=== PATIENT | female | born 1985 | race Caucasian/White ===

== ENCOUNTER 2019-05-04 01:06 | Inpatient (IN) ==
[2019-05-04] MEDS ORDERED: ONDANSETRON INJ 2 MG/ML 2 ML VIAL IV STA (01:47)
[2019-05-04] MEDS ORDERED: MECLIZINE HCL 25 MG TAB PO STA (01:47)
[2019-05-04] MEDS ORDERED: LORazepam 1 MG/2 ML VIAL IV STA (01:47)
[2019-05-04] MEDS ORDERED: SODIUM CHLORIDE 0.9% 1000ML 1,000 ML IV SCH (02:00)
[2019-05-04 02:23] LABS: Basophils # (auto) 0.04 K/uL (0-0.2); Basophils % (auto) 0.3 %; Eosinophils # (auto) 0.09 K/uL (0-0.5); Eosinophils % (auto) 0.7 %; Hematocrit (blood only) 39.7 % (37-47); Hemoglobin 13.9 g/dL (12.0-16.0); Immature Granulocytes # (auto) 0.02 K/uL (0.00-0.02); Immature Granulocytes % (auto) 0.2 %; Lymphocytes # (auto) 1.73 K/uL (1.2-3.4); Lymphocytes % (auto) 13.4 %; Mean Corpuscular Hemoglobin 31.6 pg (25-34); Mean Corpuscular Volume 90.2 fL (80-100); Mean Platelet Volume 10.6 fL (7.4-10.4); Monocytes # (auto) 0.99 K/uL (0.11-0.59); Monocytes % (auto) 7.7 %; Neutrophils # (auto) 10.01 K/uL (1.4-6.5); Neutrophils % (auto) 77.7 %; Platelet Count 226 K/uL (130-400); RDW Coefficient of Variation 12.5 % (11.5-14.5); RDW Standard Deviation 41.2 fL (36.4-46.3); White Blood Count 12.88 K/uL (4.8-10.8)
[2019-05-04 02:40] LABS: Alanine Aminotransferase 18 U/L (12-78); Albumin Level 3.5 gm/dl (3.4-5.0); Aspartate Aminotransferase 15 U/L (15-37); BUN Creatinine Ratio 15.9 (10-20); Blood Urea Nitrogen 14 mg/dl (7-18); Calcium 8.8 mg/dl (8.5-10.1); Carbon Dioxide 24 mmol/L (21-32); Chloride 106 mmol/L (98-107); Creatinine Clr Calc Pharmacy 101.3 ml/min; Est GFR (African American) 102.9; Est GFR (Non-African American) 88.8; Glucose 104 mg/dl (70-99); Magnesium 2.1 mg/dl (1.8-2.4); Potassium 4.3 mmol/L (3.5-5.1); Sodium 141 mmol/L (136-145)
[2019-05-04 02:51] LABS: Albumin Globulin Ratio 0.8 (0.9-2); Alkaline Phosphatase 93 U/L (45-117); Bilirubin,Total 0.3 mg/dl (0.2-1); Globulin 4.2 gm/dl (2.5-4.0); Total Protein 7.7 gm/dl (6.4-8.2); Troponin I < 0.015 ng/ml (0-0.045)
[2019-05-04 03:35] LABS: Appearance Urine Clear (Clear); Bacteria Urine Automated Negative (Negative); Bilirubin Urine Negative (Negative); Blood Urine 2+ (Negative); Color Urine Yellow; Epithelial Cell Urine Auto >30 /lpf (0-5); Glucose Urine UA Negative (Negative); Ketones Urine Trace (Negative); Leukocyte Esterase Urine Negative (Negative); Nitrite Urine Negative (Negative); Protein Urine Negative (Negative); RBC Urine Automated 0-4 /hpf (0-4); Specific Gravity Urine 1.023 (1.000-1.030); Urobilinogen Urine Negative (Negative); pH Urine 7.5 (4.5-7.5)
[2019-05-04 03:46] LABS: Mucus Urine Present (None Prsent)
[2019-05-04 03:47] LABS: Cast Urine Automated 0 /lpf (0-5)
--- NOTE | 2019-05-04 07:02 | CT Scan Report ---
CT SCAN OF THE BRAIN WITHOUT IV CONTRAST CLINICAL HISTORY: Vertigo. COMPARISON STUDY: No priors. TECHNIQUE: Unenhanced axial CT scan of the brain is performed from the vertex to the skull base. A d ose lowering technique was utilized adhering to the principles of ALARA. CT DOSE: 537.48 mGy.cm FINDINGS: Brain parenchyma: The brain parenchyma is normal in appearance. There is no hemorrhage, mass effect, or evidence of acute territorial ischemia by CT criteria. Pastor-white matter differentiation is preser maria del carmen. No extra-axial fluid collection is seen. Ventricles, sulci, cisterns: Normal in configuration. Intracranial vasculature: The visualized intracranial vasculature at the skull base is normal in appe arance. Calvarium: Unremarkable. Sinuses and mastoids: The visualized paranasal sinuses are clear. The mastoid air cells are well pneu matized. Orbits: The bony orbits are grossly intact. IMPRESSION: No acute intracranial abnormality. Electronically signed by: Nayan Pérez M.D. 05/04/2019 7:00 AM
--- NOTE | 2019-05-04 07:19 | Emergency Department Note ---
History of Present Illness General Chief complaint: Nausea Stated complaint: NAUSEA/VOMITING Time Seen by Provider: 05/04/19 01:28 History of Present Illness Maximum Pain Intensity: 4 This is a 33-year-old female presenting to the emergency department for evaluation of dizziness, nausea, and vomiting. The patient symptoms began 2 to 3 hours ago while she was at home. The patient was laying on her side after eating dinner on the couch, sat up, and immediately had the sensation that the room was spinning. The patient had multiple episodes of vomiting and was not able to get the dizziness under control. The patient had difficulty walking and keeping her balance. She does not report recent fevers or chills, but does report some URI symptoms last month. The patient does not believe she is . She is not having a numbness or paresthesias. She rates her current discomfort a 4/10. She does report one past episode of vertigo that resolved very quickly after taking meclizine. The patient did try Dramamine tonight, but she had vomited immediately after this. The patient denies chance of and considers herself usually healthy. She does not have chest or abdominal pains. Home Medications Home Medications Medication Instructions Recorded Confirmed Type Active Charcoal 1 dose PO DIRECTED PRN 05/04/19 05/04/19 History dimenhydrinate [Dramamine] 50 mg PO DIRECTED PRN 05/04/19 05/04/19 History diphenhydramine HCl [Benadryl] 25 mg PO DIRECTED PRN 05/04/19 05/04/19 Histor y etonogestrel-ethinyl estradiol 1 vag ring VAGINAL DIRECTED 05/04/19 05/04/19 History [NuvaRing] ibuprofen 200 - 600 mg PO DIRECTED PRN 05/04/19 05/04/19 History naproxen sodium [Aleve] 220 - 440 mg PO DIRECTED PRN 05/04/19 05/04/19 History Allergies Allergy/AdvReac Type Severity Reaction Status Date / Time nickel Allergy Mild Rash Verified 05/04/19 01:37 JEWELRY METALS Allergy Mild Rash Uncoded 05/04/19 01:37 Past Med/Surg History Medical History No chronic diseases present No significant past surgical history Social History Feels Safe at Home: Yes Smoking Status: Never smoker Review of Systems A total of 10 systems reviewed and were otherwise negative Physical Exam Vital Signs Vital Signs - 24 hr 05/04/19 01:11 05/04/19 01:20 05/04/19 01:30 Temperature 36.6 C Temperature Source Oral Sepsis Action Taken by Nursing No Action Required Pulse Rate 82 81 72 Pulse Rate from SpO2 Sensor 83 74 Respiratory Rate 15 16 12 Respiratory Effort / Characteristics Non-Labored Respiratory Depth Normal Blood Pressure 135/79 135/79 136/92 Blood Pressure Mean 97 97 106 Pulse Oximetry 100 100 100 Oxygen Delivery Method Room Air 05/04/19 02:00 05/04/19 02:01 05/04/19 02:34 Temperature Temperature Source Sepsis Action Taken by Nursing Pulse Rate 85 87 71 Pulse Rate from SpO2 Sensor 85 72 Respiratory Rate 18 18 17 Respiratory Effort / Characteristics Respiratory Depth Blood Pressure 130/84 123/81 Blood Pressure Mean 99 95 Pulse Oximetry 100 100 100 Oxygen Delivery Method Room Air 05/04/19 03:30 05/04/19 04:00 05/04/19 04:30 Temperature Temperature Source Sepsis Action Taken by Nursing Pulse Rate 86 77 83 Pulse Rate from SpO2 Sensor 81 77 83 Respiratory Rate 16 20 15 Respiratory Effort / Characteristics Respiratory Depth Blood Pressure 156/71 H 113/71 125/71 Blood Pressure Mean 99 85 89 Pulse Oximetry 99 99 96 Oxygen Delivery Method 05/04/19 05:00 05/04/19 05:46 05/04/19 06:00 Temperature Temperature Source Sepsis Action Taken by Nursing Pulse Rate 82 78 82 Pulse Rate from SpO2 Sensor 83 78 82 Respiratory Rate 17 14 17 Respiratory Effort / Characteristics Respiratory Depth Blood Pressure 141/76 H 126/79 125/76 Blood Pressure Mean 97 94 92 Pulse Oximetry 95 94 99 Oxygen Delivery Method 05/04/19 06:30 Temperature Temperature Source Sepsis Action Taken by Nursing Pulse Rate 86 Pulse Rate from SpO2 Sensor 87 Respiratory Rate 19 Respiratory Effort / Characteristics Respiratory Depth Blood Pressure 135/79 Blood Pressure Mean 97 Pulse Oximetry 98 Oxygen Delivery Method VITALS: Vitals are noted on the nurse's note and reviewed by myself. Vital signs stable. GENERAL: Well-developed, well-nourished, white female, who is pale and is dry heaving. HEAD: Normocephalic atraumatic. EARS: External ear normal. External auditory canals clear, tympanic membranes pearly pastor without erythema or effusion bilaterally. EYES: Pupils equal round and reactive to light and accommodation. Conjunctivae without injection, sclerae without icterus. Extraocular movements intact. NOSE: Patent, turbinates without inflammation or discharge. MOUTH: Mucous membranes moist. Tonsils are not enlarged. Pharynx without erythema, blood, or exudate. Uvula midline. Airway patent. NECK: Supple without nuchal rigidity. No lymphadenopathy. No thyromegaly. Cervical spine is nontender. HEART: Regular rate and rhythm without murmurs gallops or rubs. LUNGS: Clear to auscultation bilaterally without wheezes, rales or rhonchi. No retractions or accessory muscle use. ABDOMEN: Positive normal bowel sounds x 4. Soft, nontender, without masses or organomegaly. No guarding or rebound tenderness. MUSCULOSKELETAL: No muscle atrophy, erythema, or edema noted. Full range of motion in all extremities. NEURO: Patient was alert and oriented to person place and time. Movement of the head causes significant dizziness and reported worsening of symptoms for the patient. Course Administered Medications Discontinued Medications Lorazepam (Ativan) 1 mg in 2 mls @ 2 mls/min IV NOW STA Stop: 05/04/19 01:48 Last Admin: 05/04/19 02:26 Dose: 2 mls/min Documented by: [id number] Sodium Chloride (Nss 1000ml) 1,000 mls @ 999 mls/hr IV .Q1H1M AG Stop: 05/04/19 03:00 Last Infusion: 05/04/19 03:55 Dose: 0 mls/hr Documented by: [id number] Admin: 05/04/19 02:26 Dose: 999 mls/hr Documented by: [id number] Meclizine HCl (Antivert) 25 mg PO NOW STA Stop: 05/04/19 01:48 Last Admin: 05/04/19 02:00 Dose: 25 mg Documented by: [id number] Ondansetron HCl (Zofran) 4 mg IV NOW STA Stop: 05/04/19 01:48 Last Admin: 05/04/19 02:26 Dose: 4 mg Documented by: [id number] Medical Decision Making Differential Diagnosis Differential diagnosis: Etiologies such as benign positional vertigo, labrynthitis, dehydration, hypovolemia, anemia, tumor, infection, hypoglycemia, electrolyte abnormalities, cardiac sources, toxicological sources, central neurologic process, as well as others were entertained. Laboratory Data Result diagrams: 05/04/19 02:12 05/04/19 02:12 Lab Results 05/04/19 05/04/19 05/04/19 Range/Units 02:12 02:12 03:23 WBC 12.88 H (4.8-10.8) K/uL RBC 4.40 (4.2-5.4) M/uL Hgb 13.9 (12.0-16.0) g/dL Hct 39.7 (37-47) % MCV 90.2 (80-100) fL MCH 31.6 (25-34) pg MCHC 35.0 (32-36) g/dL RDW Std Deviation 41.2 (36.4-46.3) fL RDW Coeff of Siddharth 12.5 (11.5-14.5) % Plt Count 226 (130-400) K/uL MPV 10.6 H (7.4-10.4) fL Immature Gran % (Auto) 0.2 % Neut % (Auto) 77.7 % Lymph % (Auto) 13.4 % Oxford % (Auto) 7.7 % Eos % (Auto) 0.7 % Baso % (Auto) 0.3 % Immature Gran # (Auto) 0.02 (0.00-0.02) K/uL Neut # (Auto) 10.01 H (1.4-6.5) K/uL Lymph # (Auto) 1.73 (1.2-3.4) K/uL Oxford # (Auto) 0.99 H (0.11-0.59) K/uL Eos # (Auto) 0.09 (0-0.5) K/uL Baso # (Auto) 0.04 (0-0.2) K/uL Sodium 141 (136-145) mmol/L Potassium 4.3 (3.5-5.1) mmol/L Chloride 106 (98-107) mmol/L Carbon Dioxide 24 (21-32) mmol/L Anion Gap 11.0 (3-11) BUN 14 (7-18) mg/dl Creatinine 0.87 (0.6-1.2) mg/dl Est Cr Clr Drug Dosing 101.3 ml/min Est GFR ( Amer) 102.9 Est GFR (Non-Af Amer) 88.8 BUN/Creatinine Ratio 15.9 (10-20) Glucose 104 H (70-99) mg/dl Calcium 8.8 (8.5-10.1) mg/dl Magnesium 2.1 (1.8-2.4) mg/dl Total Bilirubin 0.3 (0.2-1) mg/dl AST 15 (15-37) U/L ALT 18 (12-78) U/L Alkaline Phosphatase 93 (45-117) U/L Troponin I < 0.015 (0-0.045) ng/ml Total Protein 7.7 (6.4-8.2) gm/dl Albumin 3.5 (3.4-5.0) gm/dl Globulin 4.2 H (2.5-4.0) gm/dl Albumin/Globulin Ratio 0.8 L (0.9-2) TSH 2.190 (0.300-4.500) uIu/ml Urine Color Yellow Urine Appearance Clear (Clear) Urine pH 7.5 (4.5-7.5) Ur Specific Jeffers 1.023 (1.000-1.030) Urine Protein Negative (Negative) Urine Glucose (UA) Negative (Negative) Urine Ketones Trace H (Negative) Urine Blood 2+ H (Negative) Urine Nitrite Negative (Negative) Urine Bilirubin Negative (Negative) Urine Urobilinogen Negative (Negative) Ur Leukocyte Esterase Negative (Negative) Urine WBC (Auto) 1-5 (0-5) /hpf Urine RBC (Auto) 0-4 (0-4) /hpf U Hyaline Cast (Auto) 0 (0-5) /lpf U Epithel Cells (Auto) >30 H (0-5) /lpf Urine Bacteria (Auto) Negative (Negative) Ur Renal Epithelial Cell Not Reportable Urine Mucus Present A (None Prsent) Urine Yeast Present A (None Prsent) Imaging Data Radiologist's Impression: CT SCAN OF THE BRAIN WITHOUT IV CONTRAST CLINICAL HISTORY: Vertigo. COMPARISON STUDY: No priors. TECHNIQUE: Unenhanced axial CT scan of the brain is performed from the vertex to the skull base. A dose lowering technique was utilized adhering to the principles of ALARA. CT DOSE: 537.48 mGy.cm FINDINGS: Brain parenchyma: The brain parenchyma is normal in appearance. There is no hemorrhage, mass effect, or evidence of acute territorial ischemia by CT criteria. Pastor-white matter differentiation is preserved. No extra-axial fluid collection is seen. Ventricles, sulci, cisterns: Normal in configuration. Intracranial vasculature: The visualized intracranial vasculature at the skull base is normal in appearance. Calvarium: Unremarkable. Sinuses and mastoids: The visualized paranasal sinuses are clear. The mastoid a ir cells are well pneumatized. Orbits: The bony orbits are grossly intact. IMPRESSION: No acute intracranial abnormality. ECG Data Additional Comments: Normal sinus rhythm @88bpm Normal ECG No previous ECGs available MDM Narrative Physical exam and history were performed. Nursing notes, EMR, and Medication List were personally reviewed. Patient appears to have dizziness, nausea, and vomiting. Movement exacerbates the patient's discomfort, which she does describe as the room spinning. IV access was established and labs were obtained. EKG was performed as above. She was placed on the hall monitor and provided IV Zofran, IV Ativan, and oral meclizine. She was hydrated with normal saline. The patient's blood work is as above and was reviewed. She does have a minimally elevated white blood cell count of 12,000. She does not have a significant anemia, bandemia, or gross electrolyte imbalance. Transaminases are not diagnostic. Troponin x1 is negative. Urine is without evidence of infection. She remained in normal sinus rhythm while on the hall monitor. Patient CT scan of the head does not show any acute findings per my and radiology's interpretation. The patient was able to rest very comfortably was of several hours here in the ER. She was reevaluated multiple times throughout the course of her stay. I did have a lengthy conversation with the patient regarding options of care, and we did attempt to have her ambulate. The patient was very unsteady with her gait and continued to have spinning of the room. She was able to to the b athroom and try to brush her teeth, however she immediately had vomiting again. The patient was put back into bed safely by nursing, and overall the patient does not feel comfortable for discharge home. The case was discussed with the on-call hospitalist, who agreed to evaluate the patient for further care and management. Please see their dictation for further patient course, plan, and position. The chart was completed utilizing [employer] Voice Recognition Software. Grammatical errors, random word insertions, pronoun errors, and incomplete sentences are an occasional consequence of this system due to software limitations, ambient noise, and hardware issues. Any formal questions or concerns about the content, text, or information contained within the body of this dictation should be directly addressed to the provider for clarification. . Impression & Plan Vertigo, Nausea Discharge Plan Visit Data Chief Complaint: Nausea Stated Complaint: NAUSEA/VOMITING Other Complaint: Vomiting ED Provider: Kalee Cannon ED Midlevel Provider: Narciso Yeager Discharge Problem: Vertigo, Nausea Forms Stand Alone Forms: [employer] Prescriptions Prescriptions: No Action Active Charcoal 1 dose PO DIRECTED PRN (Reason: IBS FLARE UPS) RF: 0 dimenhydrinate [Dramamine] 50 mg Tablet 50 mg PO DIRECTED PRN (Reason: Nausea) RF: 0 diphenhydramine HCl [Benadryl] 25 mg Capsule 25 mg PO DIRECTED PRN (Reason: NEEDED) RF: 0 naproxen sodium [Aleve] 220 mg Tablet 220 - 440 mg PO DIRECTED PRN (Reason: Pain) RF: 0 ibuprofen 200 mg Tablet 200 - 600 mg PO DIRECTED PRN (Reason: Pain) RF: 0 NuvaRing 0.12-0.015 mg/24 hr Ring 1 vag ring VAGINAL DIRECTED RF: 0 Referrals Referrals: [place] [Primary Care Provider] -
--- NOTE | 2019-05-04 08:27 | History & Physical Report ---
Date of Service May 04, 2019 Assessment & Plan (1) Vertigo: (2) Nausea: - Admit to [facility] - Continue NSS at 125 mL/h, meclizine 25 mg q6h, and Ativan 0.5 mg IV q6h prn - Does not sound like food poisoning although the patient did consume raw fish yesterday at lunch, also had typical bar food including wings and nachos along with beer later in the evening. - Nursing to walk with patient until gait stability returns - CT of the head is negative - WBC equals 12.88, this is possibly an inflammatory reaction with recent vomiting, other labs are essentially within normal limits - Allow regular diet, discussed with patient at bedside to eat a light lunch if she feels so inclined, something like soup or cream of wheat, advance as tolerated (3) IBS (irritable bowel syndrome): -History of such, patient had one episode of diarrhea while in the ER, continue to monitor DVT prophylaxis: Start Lovenox tomorrow morning if patient is unable to walk, for now may use teds Disposition: Patient from home, likely to remain in the hospital x1 to 2 days for IV hydration, IV medications History of Present Illness Primary Care Provider: [facility] This is a 33-year-old female with PMHx of IBS, who presents with acute onset of vertigo which began last night at 9:30 PM. She is a grad student at [employer]. Patient notes that she had a pokey bowl which consists of rice and raw fish for lunch, but felt well afterwards. She was out with friends yesterday for dinner and consumed 1 wing and nachos along with 3 beers between 4 PM and 9 PM. She reports that once getting home she was on the couch for a while relaxing, then stood up and was unable to walk without becoming significantly dizzy, swaying from side to side, and then abruptly became nauseous and vomited. She notes that overnight she had multiple episodes of vomiting with any head movement from side to side or while attempting to stand. She admits to having one episode of vertigo in the past which occurred last fall, but it was thought to be due to seasonal allergies and dehydration it was placed on oral antihistamines. Her symptoms resolved very quickly at that time. She attempted to get up in the ER pressure teeth and be able to be discharged home after receiving meclizine, Ativan and a liter of fluid however had recurrence of her symptoms and proceeded to vomit. She also notes that she had an episode of diarrhea but feels this is secondary to IBS. Labs are within normal limits other than a slightly elevated WBC, equals 12.88, CT of the head is negative for any acute abnormalities. Allergies Allergy/AdvReac Type Severity Reaction Status Date / Time nickel Allergy Mild Rash Verified 05/04/19 01:37 JEWELRY METALS Allergy Mild Rash Uncoded 05/04/19 01:37 Home Medications Home Medications Medication Instructions Recorded Confirmed Type Active Charcoal 1 dose PO DIRECTED PRN 05/04/19 05/04/19 History NuvaRing 1 vag ring VAGINAL DIRECTED 05/04/19 05/04/19 History dimenhydrinate [Dramamine] 50 mg PO DIRECTED PRN 05/04/19 05/04/19 History diphenhydramine HCl [Benadryl] 25 mg PO DIRECTED PRN 05/04/19 05/04/19 History ibuprofen 200 - 600 mg PO DIRECTED PRN 05/04/19 05/04/19 History naproxen sodium [Aleve] 220 - 440 mg PO DIRECTED PRN 05/04/19 05/04/19 History meclizine 25 mg PO Q6H PRN #30 tab 05/05/19 Rx prednisone 60 mg PO DAILY #18 tab 05/05/19 Rx Past Med/Surg History Medical History No chronic diseases present No significant past surgical history Social History Preferred Language: [place] Communication Ability: Effective Grade Teacher Required: No Beliefs That Will Affect Care: None Current Living Situation: Significant Other Other Information That Helps Us Care for You: No Feels Safe at Home: Yes Safety Concerns: Feels Safe At This Time Smoking Status: Never smoker Do You Dip or Chew Tobacco: No ; Second Hand Exposure: No ; Tobacco Cessation Education Requested by Patient: No Hx Alcohol Use: Yes Alcohol type: beer Hx Substance Use: No Review of Systems Review of Systems: Constitutional: No fever, sweats or chills, + dizziness, inability to walk due to vertigo Eyes: No diplopia, no worsening or blurred vision ENT: normal hearing, no trouble swallowing Respiratory: No cough, sputum, dyspnea at rest or on exertion Cardiovascular: No chest pain, tightness or palpitations Abdomen: As per HPI, + nausea and vomiting, +1 episode of diarrhea Musculoskeletal: No joint pain, calf pain, swelling Neurologic: No weakness, numbness/tingling, + balance problems Psychiatric: No anxiety or depression Skin: No rash or itch Physical Exam Physical Exam: General: awake, alert, no apparent distress, + obese with BMI of 36 Head: Normocephalic, atraumatic ENT: PERRL, EOMI, no pharyngeal exudate, mucous membranes moist Chest: Clear to auscultation, on room air, no adventitious breath sounds Cardiac: Regular rate and rhythm, no murmur, no JVD, normal peripheral pulses, good capillary refill Abdominal: NABS x 4 quadrants, soft, nontender to palpation, no rebound, g uarding or tenderness Extremities: Normal inspection, no peripheral edema or erythema, calfs nontender to palpation Psych: Normal mood and affect Neuro: AAO x 3, no gross motor deficits, speech is clear, gait was not assessed secondary to vertigo Skin: no rash or erythema Results & Data Vital Signs (Past 12 Hours) Vital Signs Temp Pulse Resp BP Pulse Ox 05/04/19 07:00 78 15 125/77 98 05/04/19 06:30 86 19 135/79 98 05/04/19 06:00 82 17 125/76 99 05/04/19 05:46 78 14 126/79 94 05/04/19 05:00 82 17 141/76 H 95 05/04/19 04:30 83 15 125/71 96 05/04/19 04:00 77 20 113/71 99 05/04/19 03:30 86 16 156/71 H 99 05/04/19 02:34 71 17 123/81 100 05/04/19 02:01 87 18 100 05/04/19 02:00 85 18 130/84 100 05/04/19 01:30 72 12 136/92 100 05/04/19 01:20 36.6 C 81 16 135/79 100 05/04/19 01:11 82 15 135/[address] SCAN OF THE BRAIN WITHOUT IV CONTRAST CLINICAL HISTORY: Vertigo. COMPARISON STUDY: No priors. TECHNIQUE: Unenhanced axial CT scan of the brain is performed from the vertex to the skull base. A dose lowering technique was utilized adhering to the principles of ALARA. CT DOSE: 537.48 mGy.cm FINDINGS: Brain parenchyma: The brain parenchyma is normal in appearance. There is no hemorrhage, mass effect, or evidence of acute territorial ischemia by CT criteria. Pastor-white matter differentiation is preserved. No extra-axial fluid collection is seen. Ventricles, sulci, cisterns: Normal in configuration. Intracranial vasculature: The visualized intracranial vasculature at the skull base is normal in appearance. Calvarium: Unremarkable. Sinuses and mastoids: The visualized paranasal sinuses are clear. The mastoid air cells are well pneumatized. Orbits: The bony orbits are grossly intact. IMPRESSION: No acute intracranial abnormality. ECG Additional Comments: 04-MAY-2019 02:01:36 [facility]-EDSTAT ROUTINE RETRIEVAL Normal sinus rhythm Normal ECG No previous ECGs available 25mm/s 10mm/mV 150Hz 9.0.9 12SL 241 PEDRO PABLO: 13 Referred by: REFERRED SELF Unconfirmed Vent. rate 88 BPM ND interval 182 ms QRS duration 66 ms QT/QTc 374/452 ms P-R-T axes 54 72 41 Code Status & VTE Plan Code Status Full code-discussed with patient at bedside Supervising Physician Co-Signing Physician Notes During my face to face encounter with the patient, I performed a physical examinationn and a clinical history. On examination, patient presented with nystagmus horizontally. She also reports that just looking towards her right or left would make her vertigo worse. She denies any loss of hearing, or tinnitus. Will admit patient. I reviewed above documentation and agree with it except for information that I added. Will order benzo's and will likely order MRI to assess for any abnormalities that could be making her vertigo worse. PG Care Time/CCT Total # of Minutes Spent Total Time Spent with Patient: Total time spent is greater than 50% in coordination of care (as documented) at patient's floor/unit and/or counseling patient:
[2019-05-04] MEDS ORDERED: ETONOGESTREL ETHINYL ESTRADIOL PV SCH (10:04)
[2019-05-04] MEDS ORDERED: ONDANSETRON INJ 2 MG/ML 2 ML VIAL IV PRN (10:04)
[2019-05-04] MEDS ORDERED: LORazepam 0.5 MG/1 ML VIAL IV PRN (10:04)
[2019-05-04] MEDS ORDERED: ACETAMINOPHEN 325 MG TAB PO PRN (10:04)
[2019-05-04] MEDS: SODIUM CHLORIDE 0.9% 1000ML 1,000 ML IV SCH ×2 (11:08→21:06)
[2019-05-04] MEDS: MECLIZINE HCL 25 MG TAB PO SCH ×3 (12:22→23:47)
[2019-05-04] MEDS ORDERED: INFLUENZA ADMINISTRATION CHARGE ONE ×2 (12:45→14:00)
[2019-05-04] MEDS ORDERED: INFLUENZA VIRUS QUAD VACCINE 0.5 ML SYR IM ONE ×2 (12:45→14:00)
--- NOTE | 2019-05-04 18:10 | Magnetic Resonance Report ---
Brain MRI WITHOUT CONTRAST HISTORY: vertigo TECHNIQUE: Multiplanar multisequence MRI of the brain was performed without the use of contrast. COMPARISON STUDY: Head CT 05/04/2019. FINDINGS: There are no areas of restricted diffusion to suggest acute infarction. The midline structu res are intact. The paranasal sinuses are clear. The mastoid air cells are clear. The ventricles and sulci are within normal limits for age. There is no mass, hematoma, midline shift. The major vascular flow-voids at the skull base are well maintained. A 9 mm focal defect within the right caudate head consistent with an old lacunar infarct. There are few scattered punctate foci of T2 hyperintensity se en within the subcortical white matter of the supratentorial brain. IMPRESSION: 1. No acute intracranial abnormality. 2. Old lacunar infarct within the right caudate head. 2. A few punctate foci of T2 hyperintensity seen within the subcortical white matter of the supratent orial brain. These are nonspecific but could be seen in the setting of migraines, early microvascular ischemic change, a demyelinating disease, or Lyme disease. Clinical correlation recommended. Electronically signed by: Stanley San M.D. 05/04/2019 6:08 PM
[2019-05-05] MEDS: MECLIZINE HCL 25 MG TAB PO SCH ×2 (05:11→12:36)
[2019-05-05] MEDS: SODIUM CHLORIDE 0.9% 1000ML 1,000 ML IV SCH ×2 (05:13→12:20)
[2019-05-05] MEDS ORDERED: predniSONE 20 MG TAB PO SCH (11:30)
--- NOTE | 2019-05-16 07:49 | Discharge Summary ---
Date of Service May 05, 2019 Admission HPI Per Admitting Provider This is a 33-year-old female with PMHx of IBS, who presents with acute onset of vertigo which began last night at 9:30 PM. She is a grad student at [employer]. Patient notes that she had a pokey bowl which consists of rice and raw fish for lunch, but felt well afterwards. She was out with friends yesterday for dinner and consumed 1 wing and nachos along with 3 beers between 4 PM and 9 PM. She reports that once getting home she was on the couch for a while relaxing, then stood up and was unable to walk without becoming significantly dizzy, swaying from side to side, and then abruptly became nauseous and vomited. She notes that overnight she had multiple episodes of vomiting with any head movement from side to side or while attempting to stand. She admits to having one episode of vertigo in the past which occurred last fall, but it was thought to be due to seasonal allergies and dehydration it was placed on oral antihistamines. Her symptoms resolved very quickly at that time. She attempted to get up in the ER pressure teeth and be able to be discharged home after receiving meclizine, Ativan and a liter of fluid however had recurrence of her symptoms and proceeded to vomit. She also notes that she had an episode of diarrhea but feels this is secondary to IBS. Labs are within normal limits other than a slightly elevated WBC, equals 12.88, CT of the head is negative for any acute abnormalities. Principal Diagnosis Vertigo Discharge Exam General: awake, alert, no apparent distr Head: Normocephalic, atraumatic ENT: PERRL, EOMI, no pharyngeal exudate, mucous membranes moist Chest: Clear to auscultation, on room air, no adventitious breath sounds Cardiac: Regular rate and rhythm, no murmur, no JVD, normal peripheral pulses, good capillary refill Abdominal: NABS x 4 quadrants, soft, nontender to palpation, no rebound, guarding or tenderness Extremities: Normal inspection, no peripheral edema or erythema, calfs nontender to palpation Psych: Normal mood and affect Neuro: AAO x 3, no gross motor deficits, speech is clear, gait was not assessed secondary to vertigo Skin: no rash or erythema Discharge Data Allergies Allergy/AdvReac Type Severity Reaction Status Date / Time nickel Allergy Mild Rash Verified 05/04/19 01:37 JEWELRY METALS Allergy Mild Rash Uncoded 05/04/19 01:37 Consultations 05/04/19 06:39 ED Decision to Admit Stat Ordered Studies 05/04/19 01:47 CT head/brain wo con Urgent 05/04/19 16:33 MR brain wo con Routine Hospital Course (1) Vertigo: (2) Nausea: - Admit to [facility] On examination, patient presented with nystagmus horizontally. She also reports that just looking towards her right or left would make her vertigo worse. She denies any loss of hearing, or tinnitus. - Continue NSS at 125 mL/h, meclizine 25 mg q6h, and Ativan 0.5 mg IV q6h prn - Does not sound like food poisoning although the patient did consume raw fish yesterday at lunch, also had typical bar food including wings and nachos along with beer later in the evening. - Nursing to walk with patient until gait stability returns - CT of the head is negative - WBC equals 12.88, this is possibly an inflammatory reaction with recent vomiting, other labs are essentially within normal limits - Allow regular diet, discussed with patient at bedside to eat a light lunch if she feels so inclined, something like soup or cream of wheat, advance as tolerated - Will order benzo's and will likely order MRI to assess for any abnormalities that could be making her vertigo worse. On day of discharge, MRI scan of head was negative. Patient likely may have vestibular neuritis. Patient improved with steroid burst and benzo. Patient will be followed by PCP and likely ENT as an outpatient. As patient improved, she will be discharged. (3) IBS (irritable bowel syndrome): -History of such, patient had one episode of diarrhea while in the ER, continue to monitor Total Time Total Time Spent Total Time Spent (In Minutes): 32 Total Time Includes: Examination of the Patient, Discharge Planning and Medication Reconciliation Discharge Plan Discharge Items Patient Disposition: Home - Self-Care Reason For Visit: VERTIGO, NAUSEA, VOMITING Discharge Diagnosis: vertigo Activity: Resume your previous activity Non-emergency contact: Primary Care Provider Call non-emergency contact if: you have any medication questions Follow-up/Referrals: [place] [Primary Care Provider] - Diet: Regular Addtl Attending Provider Instructions: Recommend to followup with PCP in 1-2 weeks Recommend f/u with ENT Pending Studies at Discharge: No Stand-Alone Forms: [facility] Medications and DC Order Prescriptions: New prednisone 20 mg Tablet 60 mg PO DAILY Qty: 18 RF: 0 meclizine 25 mg Tablet 25 mg PO Q6H PRN (Reason: vertigo) Qty: 30 RF: 0 Continued Active Charcoal 1 dose PO DIRECTED PRN (Reason: IBS FLARE UPS) RF: 0 dimenhydrinate [Dramamine] 50 mg Tablet 50 mg PO DIRECTED PRN (Reason: Nausea) RF: 0 diphenhydramine HCl [Benadryl] 25 mg Capsule 25 mg PO DIRECTED PRN (Reason: NEEDED) RF: 0 naproxen sodium [Aleve] 220 mg Tablet 220 - 440 mg PO DIRECTED PRN (Reason: Pain) RF: 0 ibuprofen 200 mg Tablet 200 - 600 mg PO DIRECTED PRN (Reason: Pain) RF: 0 NuvaRing 0.12-0.015 mg/24 hr Ring 1 vag ring VAGINAL DIRECTED RF: 0 Discharge Orders: Discharge Order (Routine); Ordered 05/05/19 Ordered By: Kne Ascencio Admission Data Admit Date/Time: 05/04/19 08:17 Attending Provider: Ken Ascencio Admit Provider: Ken Ascencio Primary Care Provider: [facility] Other Providers: Rafy Wade Other Interventions: Discharge Summary Assessment (RN) Last Done: 05/05/19 17:43 DC Date/Time DO NOT enter until pt leaves facility: 05/05/19 19:16
== END 2019-05-05 19:16 | disposition home or self-care (01) | DRG 149 ==
LOC: ED 01:06 → 2W 08:17
DX: K58.9 Irritable bowel syndrome, unspecified; R42 Dizziness and giddiness; R11.2 Nausea with vomiting, unspecified

== ENCOUNTER 2019-11-12 01:35 | Inpatient (IN) ==
[2019-11-12] MEDS ORDERED: LORazepam 1 MG TAB PO STA (02:05)
--- NOTE | 2019-11-12 02:07 | Emergency Department Note ---
Impression & Plan Paranoid delusion, Marielos, Panic attack ED Provider Note Name: VIVIAN BYNUM Age: 34 Sex: F Arrives Via: Walk-In Informant: Patient ED Provider: Jose Mccray MD Chief Complaint: Panic Attack Impression: Paranoid Delusion Marielos Panic Attack Medical Decision Makin yr old female with history of anxiety and "migraines" on Topamax and Atarax arrives for evaluation of acute worsening of anxiety over the last 2 weeks. On exam and discussion she is paranoid, delusional and she is tangential and severely anxious. She was given 1 mg PO ativan which did calm her down, but she continues to have bizarre paranoid thoughts, very difficulty to follow. I feel she would absolutely benefit from inpatient psych treatment at this time given how bad ehr symptoms have gotten and the fact she hasn't slept in 3-4 days, is under the impression she is harming people and is not thinking logically. I do not feel this is drug, infectious nor otherwise medical. Work-up gaffney she is medically clear. UDS and alcohol are negative. She was evaluated by Case Manag ement who agree with psych hospitalization and thus [facility] was consulted. Triage/Nursing Notes reviewed by Me Additional history obtained from Case Management Differentials:Mood disorder, infection, hypoglycemia, electrolyte abnormalities, cardiac sources, intracerebral event, toxicologic, trauma, neurologic, as well as other pathologies. Vital Signs: reviewed and remarkable for Tachy/Hypertensive Interventions: Ativan 1mg PO Labs:Reviewed and remarkable for wnl Consults:[facility] Plan: Disposition:Hospitalization. Condition: Good Blood pressure:Normal.No Referral necessary History of Present Illness:34 / female arrives for evaluation of panic attack. Patient with history of anxiety, depression and reported "migraines" though this has also been diagnosed as panic attacks. Tonight she was concerned about some text messages her parents sent her from [place] and when she showed these to her watermelon harvesting supervisor boyfriend he said she should come to the ED for help. She admits being very worried about a variety of things. She notes that she is worried that many people are talking about her. 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 She has not slept in the last 3 to 4 days. She can not stop her thoughts from racing in her head. Admits crying frequently and being very anxious about everything. Being isolated during coronavirus pandemic has made things much more difficult for her. Patient constantly changing to discussing many different aspects of her life, from stressors as a child to concerns her aunt is actually her mother, to the fact her father is sending spies to [facility] to monitor, amongst a host of other concerns. She has been on Topamax and Atarax for her symptoms for at least 6 months. She thinks topamax has made her more anxious. She denies previous psych admissions but admits an admission for a "migraine" once that was also diagnosed at a panic attack. She notes she drank alcohol a few nights ago and that made her very much concerned people were out to get her. She previously took ativan that a friend made her take and it made her talk too much. She denies suicidal ideation, homicidal ideation. She denies hallucinations. She has been taking no illicit drugs. Feels safe at home. ROS: See above HPI for pertinent positives & negatives. A total of 10 systems reviewed and were otherwise negative. Past Medical History:Depression/Anxiety Past Surgical History:None Family History:? Mental Illness Social History:[employer] [facility] [employer] PHD student, non smoker, no drugs, rare alcohol, lives with watermelon harvesting supervisor boyfriend Home Medications:Topamax, Atarax Allergies:NKDA Vitals:Blood Pressure: 175/11, Pulse 111, RR 18, T 36.7C, O2 100% on RA Physical Exam: GENERAL: Patient is very anxious appearing and in minimal distress. EYES: No scleral icterus, unremarkable pupils. ENT: Mucous membranes moist, no nasal congestion. NECK: No masses appreciated, nomeningismus, trachea is midline. RESPIRATORY: No dyspnea. Clear to auscultation and equal bilaterally. No wheeze, no rhonchi. CARDIOVASCULAR: Tachy.No murmurs, rubs, gallops appreciated. GASTROINTESTINAL: Abdomen soft, non-tender, no peritonitis.Bowel sounds positive.No masses appreciated. BACK: No midline tenderness, no CVA tenderness EXTREMITIES: Normal motion all extremities, no cyanosis, no edema. NEUROLOGIC: Alert and oriented, no acute motor or sensory deficits, no focal weakness, cranial nerves grossly intact. SKIN: No rash, no jaundice, no diaphoresis. PSYCH: Paranoid, Manic, Severely anxious, at times on verge of crying, Tangentia l, periodically answering questions not asked, denies suicidal/homicidal ideation. 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 Beliefs That Will Affect Care: None Current Living Situation: Significant Other Feels Safe at Home: Yes Smoking Status: Never smoker Second Hand Exposure: No ; Hx Alcohol Use: Yes Alcohol type: beer Hx Substance Use: No Allergies Allergies Allergy/AdvReac Type Severity Reaction Status Date / Time nickel Allergy Mild Rash Verified 05/04/19 01:37 JEWELRY METALS Allergy Mild Rash Uncoded 05/04/19 01:37 Home Meds Home Medications Medication Instructions Recorded Confirmed hydroxyzine HCl 25 mg PO Q4 PRN 11/12/19 11/12/19 topiramate [Topamax] 100 mg PO DAILY 11/12/19 11/12/19 Results & Data (ED) Vital Signs Vital Signs - 24 hr 11/12/19 01:37 11/12/19 04:35 11/12/19 06:38 Temperature 36.7 C Temperature Source Oral Pulse Rate 111 H Pulse Rate [Finger] 96 H 100 H Pulse Rhythm [Finger] Regular Respiratory Rate 18 18 Respiratory Effort / Characteristics Non-Labored Respiratory Depth Normal Respiratory Pattern Regular Blood Pressure 175/111 H Blood Pressure [Right Arm] 151/100 H 134/95 Blood Pressure Mean 132 Blood Pressure Mean [Right Arm] 117 108 Blood Pressure Position [Right Arm] Lying Pulse Oximetry 100 99 Oxygen Delivery Method Room Air Sepsis Recent Fever Within 48 Hours No Sepsis New/Unexplained Change in Mental Status No Sepsis Action Taken by Nursing No Action Required Laboratory Data Result diagrams: 11/12/19 02:35 11/12/19 02:35 Lab Results 11/12/19 11/12/19 11/12/19 Range/Units 02:11 02:35 02:35 WBC 10.62 (4.8-10.8) K/uL RBC 5.03 (4.2-5.4) M/uL Hgb 16.2 H (12.0-16.0) g/dL Hct 45.1 (37-47) % MCV 89.7 (80-100) fL MCH 32.2 (25-34) pg MCHC 35.9 (32-36) g/dL RDW Std Deviation 42.8 (36.4-46.3) fL RDW Coeff of Siddharth 13.1 (11.5-14.5) % Plt Count 288 (130-400) K/uL MPV 10.4 (7.4-10.4) fL Immature Gran % (Auto) 0.2 % Neut % (Auto) 72.9 % Lymph % (Auto) 18.8 % [place] % (Auto) 7.2 % Eos % (Auto) 0.4 % Baso % (Auto) 0.5 % Immature Gran # (Auto) 0.02 (0.00-0.02) K/uL Neut # (Auto) 7.75 H (1.4-6.5) K/uL Lymph # (Auto) 2.00 (1.2-3.4) K/uL [place] # (Auto) 0.76 H (0.11-0.59) K/uL Eos # (Auto) 0.04 (0-0.5) K/uL Baso # (Auto) 0.05 (0-0.2) K/uL Sodium 137 (136-145) mmol/L Potassium 3.3 L (3.5-5.1) mmol/L Chloride 111 H (98-107) mmol/L Carbon Dioxide 22 (21-32) mmol/L Anion Gap 4.0 (3-11) BUN 8 (7-18) mg/dl Creatinine 0.92 (0.6-1.2) mg/dl Est Cr Clr Drug Dosing 86.3 ml/min Est GFR ( Amer) 95.5 Est GFR (Non-Af Amer) 82.4 BUN/Creatinine Ratio 8.5 L (10-20) Glucose 119 H (70-99) mg/dl Calcium 9.6 (8.5-10.1) mg/dl Total Bilirubin 0.6 (0.2-1) mg/dl AST 16 (15-37) U/L ALT 26 (12-78) U/L Alkaline Phosphatase 145 H (45-117) U/L Total Protein 8.6 H (6.4-8.2) gm/dl Albumin 4.5 (3.4-5.0) gm/dl Globulin 4.1 H (2.5-4.0) gm/dl Albumin/Globulin Ratio 1.1 (0.9-2) TSH 2.540 (0.300-4.500) uIu/ml Urine Color Yellow Urine Appearance Slightly Cloudy (Clear) Urine pH 5.0 (4.5-7.5) Ur Specific [place] >= 1.030 (1.000-1.030) Urine Protein Negative (Negative) Urine Glucose (UA) Negative (Negative) Urine Ketones 1+ H (Negative) Urine Blood Negative (Negative) Urine Nitrite Negative (Negative) Urine Bilirubin Negative (Negative) Urine Urobilinogen Negative (Negative) Ur Leukocyte Esterase Negative (Negative) Urine Test (Negative) Salicylates (2.8-20) mg/dl Urine Opiates Screen (Neg) Ur Methadone, Qual (Neg) Acetaminophen (10-30) ug/ml Urine Barbiturates (Neg) Ur Phencyclidine (PCP) (Neg) U Amphetamin/Meth Scrn (Neg) MDMA (Ecstasy) Screen (Neg) U Benzodiazepines Scrn (Neg) Ur Cocaine Metabolite (Neg) U Marijuana (THC) Screen (Neg) Ethyl Alcohol mg/dL (0-3) mg/dl 11/12/19 11/12/19 11/12/19 Range/Units 02:35 02:35 05:00 WBC (4.8-10.8) K/uL RBC (4.2-5.4) M/uL Hgb (12.0-16.0) g/dL Hct (37-47) % MCV (80-100) fL MCH (25-34) pg MCHC (32-36) g/dL RDW Std Deviation (36.4-46.3) fL RDW Coeff of Siddharth (11.5-14.5) % Plt Count (130-400) K/uL MPV (7.4-10.4) fL Immature Gran % (Auto) % Neut % (Auto) % Lymph % (Auto) % [place] % (Auto) % Eos % (Auto) % Baso % (Auto) % Immature Gran # (Auto) (0.00-0.02) K/uL Neut # (Auto) (1.4-6.5) K/uL Lymph # (Auto) (1.2-3.4) K/uL [place] # (Auto) (0.11-0.59) K/uL Eos # (Auto) (0-0.5) K/uL Baso # (Auto) (0-0.2) K/uL Sodium (136-145) mmol/L Potassium (3.5-5.1) mmol/L Chloride (98-107) mmol/L Carbon Dioxide (21-32) mmol/L Anion Gap (3-11) BUN (7-18) mg/dl Creatinine (0.6-1.2) mg/dl Est Cr Clr Drug Dosing ml/min Est GFR ( Amer) Est GFR (Non-Af Amer) BUN/Creatinine Ratio (10-20) Glucose (70-99) mg/dl Calcium (8.5-10.1) mg/dl Total Bilirubin (0.2-1) mg/dl AST (15-37) U/L ALT (12-78) U/L Alkaline Phosphatase (45-117) U/L Total Protein (6.4-8.2) gm/dl Albumin (3.4-5.0) gm/dl Globulin (2.5-4.0) gm/dl Albumin/Globulin Ratio (0.9-2) TSH (0.300-4.500) uIu/ml Urine Color Urine Appearance (Clear) Urine pH (4.5-7.5) Ur Specific [place] (1.000-1.030) Urine Protein (Negative) Urine Glucose (UA) (Negative) Urine Ketones (Negative) Urine Blood (Negative) Urine Nitrite (Negative) Urine Bilirubin (Negative) Urine Urobilinogen (Negative) Ur Leukocyte Esterase (Negative) Urine Test (Negative) Salicylates < 1.7 L (2.8-20) mg/dl Urine Opiates Screen Neg (Neg) Ur Methadone, Qual Neg (Neg) Acetaminophen < 2 L (10-30) ug/ml Urine Barbiturates Neg (Neg) Ur Phencyclidine (PCP) Neg (Neg) U Amphetamin/Meth Scrn Neg (Neg) MDMA (Ecstasy) Screen Neg (Neg) U Benzodiazepines Scrn Neg (Neg) Ur Cocaine Metabolite Neg (Neg) U Marijuana (THC) Screen Neg (Neg) Ethyl Alcohol mg/dL < 3.0 (0-3) mg/dl 11/12/19 Range/Units 05:00 WBC (4.8-10.8) K/uL RBC (4.2-5.4) M/uL Hgb (12.0-16.0) g/dL Hct (37-47) % MCV (80-100) fL MCH (25-34) pg MCHC (32-36) g/dL RDW Std Deviation (36.4-46.3) fL RDW Coeff of Siddharth (11.5-14.5) % Plt Count (130-400) K/uL MPV (7.4-10.4) fL Immature Gran % (Auto) % Neut % (Auto) % Lymph % (Auto) % [place] % (Auto) % Eos % (Auto) % Baso % (Auto) % Immature Gran # (Auto) (0.00-0.02) K/uL Neut # (Auto) (1.4-6.5) K/uL Lymph # (Auto) (1.2-3.4) K/uL [place] # (Auto) (0.11-0.59) K/uL Eos # (Auto) (0-0.5) K/uL Baso # (Auto) (0-0.2) K/uL Sodium (136-145) mmol/L Potassium (3.5-5.1) mmol/L Chloride (98-107) mmol/L Carbon Dioxide (21-32) mmol/L Anion Gap (3-11) BUN (7-18) mg/dl Creatinine (0.6-1.2) mg/dl Est Cr Clr Drug Dosing ml/min Est GFR ( Amer) Est GFR (Non-Af Amer) BUN/Creatinine Ratio (10-20) Glucose (70-99) mg/dl Calcium (8.5-10.1) mg/dl Total Bilirubin (0.2-1) mg/dl AST (15-37) U/L ALT (12-78) U/L Alkaline Phosphatase (45-117) U/L Total Protein (6.4-8.2) gm/dl Albumin (3.4-5.0) gm/dl Globulin (2.5-4.0) gm/dl Albumin/Globulin Ratio (0.9-2) TSH (0.300-4.500) uIu/ml Urine Color Urine Appearance (Clear) Urine pH (4.5-7.5) Ur Specific [place] (1.000-1.030) Urine Protein (Negative) Urine Glucose (UA) (Negative) Urine Ketones (Negative) Urine Blood (Negative) Urine Nitrite (Negative) Urine Bilirubin (Negative) Urine Urobilinogen (Negative) Ur Leukocyte Esterase (Negative) Urine Test Negative (Negative) Salicylates (2.8-20) mg/dl Urine Opiates Screen (Neg) Ur Methadone, Qual (Neg) Acetaminophen (10-30) ug/ml Urine Barbiturates (Neg) Ur Phencyclidine (PCP) (Neg) U Amphetamin/Meth Scrn (Neg) MDMA (Ecstasy) Screen (Neg) U Benzodiazepines Scrn (Neg) Ur Cocaine Metabolite (Neg) U Marijuana (THC) Screen (Neg) Ethyl Alcohol mg/dL (0-3) mg/dl Administered Medications Aripiprazole (Abilify) 2.5 mg PO QAM AG Stop: 12/12/19 10:09 Last Admin: 11/12/19 10:57 Dose: 2.5 mg Documented by: [id number] Haloperidol (Haldol) 2 mg PO Q6 PRN PRN Reason: Anxiety/Agitation Stop: 12/12/19 10:09 Last Admin: 11/12/19 15:04 Dose: 2 mg Documented by: [id number] Lorazepam (Ativan) 1 mg PO Q6 PRN PRN Reason: Anxiety Stop: 12/12/19 10:06 Last Admin: 11/12/19 10:40 Dose: 1 mg Documented by: [id number] Discontinued Medications Lorazepam (Ativan) 1 mg PO NOW STA Stop: 11/12/19 02:06 Last Admin: 11/12/19 02:27 Dose: 1 mg Documented by: [id number] Discharge Plan Visit Data *Final* Discharge Date/Time: 11/12/19 07:32 Chief Complaint: Mental Health Evaluation Stated Complaint: PAINIC ATTACK ED Provider: Jose Mccray Discharge Problem: Paranoid delusion, Marielos, Panic attack Patient Disposition: Admitted As Inpatient Discharge Instructions Interventions: ED Discharge Assessment Last Done: 11/12/19 07:32
[2019-11-12 02:47] LABS: Basophils # (auto) 0.05 K/uL (0-0.2); Basophils % (auto) 0.5 %; Eosinophils # (auto) 0.04 K/uL (0-0.5); Eosinophils % (auto) 0.4 %; Hematocrit (blood only) 45.1 % (37-47); Hemoglobin 16.2 g/dL (12.0-16.0); Immature Granulocytes # (auto) 0.02 K/uL (0.00-0.02); Immature Granulocytes % (auto) 0.2 %; Lymphocytes % (auto) 18.8 %; Mean Corpuscular Hemoglobin 32.2 pg (25-34); Mean Corpuscular Hgb Conc 35.9 g/dL (32-36); Mean Corpuscular Volume 89.7 fL (80-100); Mean Platelet Volume 10.4 fL (7.4-10.4); Monocytes # (auto) 0.76 K/uL (0.11-0.59); Monocytes % (auto) 7.2 %; Neutrophils # (auto) 7.75 K/uL (1.4-6.5); Neutrophils % (auto) 72.9 %; Platelet Count 288 K/uL (130-400); RDW Coefficient of Variation 13.1 % (11.5-14.5); RDW Standard Deviation 42.8 fL (36.4-46.3); Red Blood Count 5.03 M/uL (4.2-5.4); White Blood Count 10.62 K/uL (4.8-10.8)
[2019-11-12 02:47] LABS: Appearance Urine Slightly Cloudy (Clear); Bilirubin Urine Negative (Negative); Blood Urine Negative (Negative); Color Urine Yellow; Glucose Urine UA Negative (Negative); Ketones Urine 1+ (Negative); Leukocyte Esterase Urine Negative (Negative); Nitrite Urine Negative (Negative); Protein Urine Negative (Negative); Specific Gravity Urine >= 1.030 (1.000-1.030); Urobilinogen Urine Negative (Negative)
[2019-11-12 03:05] LABS: Albumin Level 4.5 gm/dl (3.4-5.0); BUN Creatinine Ratio 8.5 (10-20); Calcium 9.6 mg/dl (8.5-10.1); Creatinine Clr Calc Pharmacy 86.3 ml/min; Est GFR (African American) 95.5; Est GFR (Non-African American) 82.4; Potassium 3.3 mmol/L (3.5-5.1)
[2019-11-12 03:16] LABS: Albumin Globulin Ratio 1.1 (0.9-2); Bilirubin,Total 0.6 mg/dl (0.2-1); Globulin 4.1 gm/dl (2.5-4.0); Thyroid Stimulating Hormone 2.54 uIu/ml (0.300-4.500); Total Protein 8.6 gm/dl (6.4-8.2)
[2019-11-12 03:23] LABS: Acetaminophen < 2 ug/ml (10-30); Salicylate < 1.7 mg/dl (2.8-20)
[2019-11-12 05:13] LABS: Pregnancy Test, Urine Negative (Negative)
[2019-11-12 05:34] LABS: Amphetamines+Metham, Urine Neg (Neg); Barbiturates, Urine Neg (Neg); Benzodiazepine, Urine Neg (Neg); Cocaine, Urine Neg (Neg); MDMA (Ecstacy), Urine Neg (Neg); Methadone, Urine Neg (Neg); Opiate, Urine Neg (Neg); Phencyclidine, Urine Neg (Neg)
[2019-11-12] MEDS ORDERED: ACETAMINOPHEN 325 MG TAB PO PRN (08:16)
[2019-11-12] MEDS ORDERED: BISMUTH SUBSALICYLATE PER ML OMNICELL CHARGE PO PRN (08:16)
[2019-11-12] MEDS ORDERED: SODIUM CHLORIDE 0.65% NA SOLN 45 ML (OCEAN) PRN (08:16)
[2019-11-12] MEDS ORDERED: ALUMINUM/MAGNESIUM SUSP 30 ML UDC PO PRN (08:16)
[2019-11-12] MEDS ORDERED: MAGNESIUM HYDROXIDE SUSP 30 ML UDC PO PRN (08:16)
[2019-11-12] MEDS ORDERED: BENZTROPINE MESYLATE 1 MG TAB PO PRN (10:10)
[2019-11-12] MEDS ORDERED: haloperidoL 1 MG TAB PO PRN (10:10)
[2019-11-12] MEDS: LORazepam 1 MG TAB PO PRN (10:40)
[2019-11-12] MEDS: ARIPiprazole 5 MG TAB PO SCH (10:57)
--- NOTE | 2019-11-12 13:11 | History & Physical ---
Date of Service November 12, 2019 Impression / Recommendations Impression 34 yo female with significant thought disorganization/delusional psychosis, gradual decline since 05/14. There appears to be a mood component, though subclinical for hypomania based on her history (though lacks insight). Psychotic symptoms appear to have gotten worse in the setting of depression or a mixed episode. Her overall presentation is most consistent with bipolar disorder vs depression with psychotic features vs borderling personality disorder vs primary thought disorder. Has also been hypertensive, assuming related to reactive anxiety. She denies substance use and does not appear to be experiencing any withdrawal. (1) Paranoid delusion: The patient was admitted to the [facility] ([facility]) on q15 min checks (behavioral with suicide precautions) for safety. The patient will participate in group, recreational, and milieu therapies and will be offered additional individual and family sessions as clinically appropriate. Risks/benefits/alternatives reviewed re: rx with antipsychotic for mood stabilization and to treat thought disorganization. Discussion included but was not limited to need for monitoring for TD and metabolic abnormalities, labs ordered. Abilify chosen given suspicion of bipolar. Will start 2.5 mg Abilify today with plan to titrate. Ativan 1 mg prn as supervised with Vistaril prn to start for sleep. Will be used in place of topamax. Note that re: psychosis workup she did have a head CT during medical admission in the fall but if psychotic symptoms persist should have MRI as outpatient. Risk Factors Assessment Do You Have Access To A Gun?: No Protective Factors Assessment Employed: Yes Psychiatric History Identifying Data VIVIAN BYNUM is a 34-year-old F who currently lives in [place] with her boyfriend, has a previous admission to medical in April for vertigo, and was admitted on 11/12/19 07:23 on a 201 voluntary commitment for disorganized thoughts. Chief Complaint "I know I'm not right but I also think my family is trying to get in my head". History of Present Illness Brought to the ED by her boyfriend of many years because he had "never seen her like this". 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 She reportedly started on topamax to help with ?atypical migraine vs anxiety/panic. Hx of 1-2 dissociative like experiences at business conference, the most recent one being in [place] prior to spring. Her history is a bit disorganized but states prior to leaving for the conference she felt like "the new me" and was dressing more "vibrantly" than her usual self. She asked alot of questions at the conference and others commented that she seemed "rude". Otherwise she denies manic symptoms. She states that after that she feels like "I'm in multiple time periods at once" in that she is having some racing or disorganized thoughts about her past/present and future. She has been more focussed on her father trying to manipulate her in some way and told me a story about a phone call last week where he introduced her to a foreign exchange student coordinator for mentoring relationship and it didn't go well. Vivian felt like the student knew more than her on topic of social management and/or was rude to her father. She feels he called back afterward to spy on her as "I don't believe a word he said". 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 She did not sleep much at all in 3-4 days leading up to this hospitalization and would cry and isolate herself. She has taken Atarax prn at times but didn't "do much lately". She spends alot of time trying to make connections between things that don't make sense. Past Psychiatric History Previous Psych History: was part of [employer] grad process group with [employer], she reports being asked to leave the group and ultimately being referred to [facility] due to becoming too confrontational or disruptive to group. Current Psychiatric Diagnosis: Anxiety and depression Previous Psych Admissions: none Do You Have Access To A Gun?: No History of Previous Suicide Attempt: No Past Medication Trials: current meds, has taken a friend's Ativan with Etoh Past Head Trauma/Neuro History History of Concussion/Seizure: No Allergies Allergy/AdvReac Type Severity Reaction Status Date / Time nickel Allergy Mild Rash Verified 05/04/19 01:37 JEWELRY METALS Allergy Mild Rash Uncoded 05/04/19 01:37 Home Medications Home Medications Medication Instructions Recorded Confirmed Type hydroxyzine HCl 25 mg PO Q4 PRN 11/12/19 11/12/19 History topiramate [Topamax] 100 mg PO DAILY 11/12/19 11/12/19 History Family History Family History of: Depression and Anxiety Family Mental Health History Comment: Pt unsure if family has mental health history but feels like they do. Alcohol History Hx of Alcohol Use Over the Past 12 Months: Yes (once a month) AUDIT Total Score: 1 Smoking Use Have You Smoked or Used Tobacco Products in the Last 30 Days: No Smoking Status: Never smoker Substance History Hx of Prescription Med Misuse Over the Past 12 Months: No Hx of Over the Counter Med Misuse Over the Past 12 Months: No Hx of Inhalent Misuse Over the Past 12 Months: No Hx of Organic Substance Use Over the Past 12 Months: No Hx of Illegal Substances/Street Drug Use Over Past 12 Months: No Problems as a Result of Past Substance Use: None Identified Personal History Living Arrangements: Apartment Living Arrangements Comments: living with partner Devonte Childhood: 1 sister who is 1 year younger than her, related typical sisters both parents in academics 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 Beliefs That Will Affect Care: None Current Living Situation: Significant Other Feels Safe at Home: Yes Smoking Status: Never smoker Second Hand Exposure: No ; Hx Alcohol Use: Yes Alcohol type: beer Hx Substance Use: No Review of Systems Review of Systems: All systems reviewed & are unremarkable except as noted in HPI & below Physical Exam Psychiatric: Orientation: alert Apperance: appropriately groomed Eye Contact: good eye contact (though sometimes stares through) Motor Behavior: steady gait and station and no abnormal motor movements Speech: normal rate/rhythm/volume of speech Affect: + tearful affect Mood: + depressed mood Thought Process: + tangential thought process Thought Content: + paranoid and + ideas of reference Suicidal Thoughts: denies suicidal thoughts Homicidal Thoughts: denies homicidal thoughts Hallucinations: no auditory hallucinations and no visual hallucinations Cognition: language grossly intact; + attention not intact Estimated Intelligence: consistent with education level Insight: + poor insight Judgement: + poor judgement Vital Signs (Past 24 Hours): Last Vital Signs Temp 36.7 C 11/12/19 08:00 Pulse 96 H 11/12/19 08:00 Resp 18 11/12/19 08:00 BP 144/95 H 11/12/19 08:00 Pulse Ox 98 11/12/19 07:35 Exam Statement: A physical exam was performed in the ED by Dr. Mccray for the purposes of medical clearance. I accept that physical as correct and adequate for the purposes of the inpatient physical exam. Results & Data ([facility]) Laboratory Results Laboratory Results - last 24 hr 11/12/19 11/12/19 11/12/19 02:11 02:35 02:35 WBC 10.62 RBC 5.03 Hgb 16.2 H Hct 45.1 MCV 89.7 MCH 32.2 MCHC 35.9 RDW Std Deviation 42.8 RDW Coeff of Siddharth 13.1 Plt Count 288 MPV 10.4 Immature Gran % (Auto) 0.2 Neut % (Auto) 72.9 Lymph % (Auto) 18.8 Major % (Auto) 7.2 Eos % (Auto) 0.4 Baso % (Auto) 0.5 Immature Gran # (Auto) 0.02 Neut # (Auto) 7.75 H Lymph # (Auto) 2.00 Major # (Auto) 0.76 H Eos # (Auto) 0.04 Baso # (Auto) 0.05 Sodium 137 Potassium 3.3 L Chloride 111 H Carbon Dioxide 22 Anion Gap 4.0 BUN 8 Creatinine 0.92 Est Cr Clr Drug Dosing 86.3 Est GFR ( Amer) 95.5 Est GFR (Non-Af Amer) 82.4 BUN/Creatinine Ratio 8.5 L Glucose 119 H Calcium 9.6 Total Bilirubin 0.6 AST 16 ALT 26 Alkaline Phosphatase 145 H Total Protein 8.6 H Albumin 4.5 Globulin 4.1 H Albumin/Globulin Ratio 1.1 TSH 2.540 Urine Color Yellow Urine Appearance Slightly Cloudy Urine pH 5.0 Ur Specific [place] >= 1.030 Urine Protein Negative Urine Glucose (UA) Negative Urine Ketones 1+ H Urine Blood Negative Urine Nitrite Negative Urine Bilirubin Negative Urine Urobilinogen Negative Ur Leukocyte Esterase Negative Urine Test Salicylates Urine Opiates Screen Ur Methadone, Qual Acetaminophen Urine Barbiturates Ur Phencyclidine (PCP) U Amphetamin/Meth Scrn MDMA (Ecstasy) Screen U Benzodiazepines Scrn Ur Cocaine Metabolite U Marijuana (THC) Screen Ethyl Alcohol mg/dL 11/12/19 11/12/19 11/12/19 02:35 02:35 05:00 WBC RBC Hgb Hct MCV MCH MCHC RDW Std Deviation RDW Coeff of Siddharth Plt Count MPV Immature Gran % (Auto) Neut % (Auto) Lymph % (Auto) Major % (Auto) Eos % (Auto) Baso % (Auto) Immature Gran # (Auto) Neut # (Auto) Lymph # (Auto) Major # (Auto) Eos # (Auto) Baso # (Auto) Sodium Potassium Chloride Carbon Dioxide Anion Gap BUN Creatinine Est Cr Clr Drug Dosing Est GFR ( Amer) Est GFR (Non-Af Amer) BUN/Creatinine Ratio Glucose Calcium Total Bilirubin AST ALT Alkaline Phosphatase Total Protein Albumin Globulin Albumin/Globulin Ratio TSH Urine Color Urine Appearance Urine pH Ur Specific [place] Urine Protein Urine Glucose (UA) Urine Ketones Urine Blood Urine Nitrite Urine Bilirubin Urine Urobilinogen Ur Leukocyte Esterase Urine Test Salicylates < 1.7 L Urine Opiates Screen Neg Ur Methadone, Qual Neg Acetaminophen < 2 L Urine Barbiturates Neg Ur Phencyclidine (PCP) Neg U Amphetamin/Meth Scrn Neg MDMA (Ecstasy) Screen Neg U Benzodiazepines Scrn Neg Ur Cocaine Metabolite Neg U Marijuana (THC) Screen Neg Ethyl Alcohol mg/dL < 3.0 11/12/19 05:00 WBC RBC Hgb Hct MCV MCH MCHC RDW Std Deviation RDW Coeff of Siddharth Plt Count MPV Immature Gran % (Auto) Neut % (Auto) Lymph % (Auto) Major % (Auto) Eos % (Auto) Baso % (Auto) Immature Gran # (Auto) Neut # (Auto) Lymph # (Auto) Major # (Auto) Eos # (Auto) Baso # (Auto) Sodium Potassium Chloride Carbon Dioxide Anion Gap BUN Creatinine Est Cr Clr Drug Dosing Est GFR ( Amer) Est GFR (Non-Af Amer) BUN/Creatinine Ratio Glucose Calcium Total Bilirubin AST ALT Alkaline Phosphatase Total Protein Albumin Globulin Albumin/Globulin Ratio TSH Urine Color Urine Appearance Urine pH Ur Specific [place] Urine Protein Urine Glucose (UA) Urine Ketones Urine Blood Urine Nitrite Urine Bilirubin Urine Urobilinogen Ur Leukocyte Esterase Urine Test Negative Salicylates Urine Opiates Screen Ur Methadone, Qual Acetaminophen Urine Barbiturates Ur Phencyclidine (PCP) U Amphetamin/Meth Scrn MDMA (Ecstasy) Screen U Benzodiazepines Scrn Ur Cocaine Metabolite U Marijuana (THC) Screen Ethyl Alcohol mg/dL Current Inpatient Medications Current Inpatient Medications: Current Inpatient Medications Acetaminophen (Tylenol) 650 mg PO Q4H PRN PRN Reason: Headache or Minor Fever Stop: 12/12/19 08:15 Al Hydrox/Mg Hydrox/Simethicone (Maalox) 30 ml PO Q4H PRN PRN Reason: GI Upset Stop: 12/12/19 08:15 Aripiprazole (Abilify) 2.5 mg PO QAM AG Stop: 12/12/19 10:09 Last Admin: 11/12/19 10:57 Dose: 2.5 mg Documented by: Benztropine Mesylate (Cogentin) 1 mg PO Q6 PRN PRN Reason: Muscle Spasm Stop: 12/12/19 10:09 Bismuth Subsalicylate (Kaopectate) 15 ml PO PRN PRN PRN Reason: Loose Stool Stop: 12/12/19 08:15 Haloperidol (Haldol) 2 mg PO Q6 PRN PRN Reason: Anxiety/Agitation Stop: 12/12/19 10:09 Hydroxyzine HCl (Vistaril) 25 mg PO Q4H PRN PRN Reason: Anxiety Stop: 12/12/19 07:22 Hydroxyzine HCl (Vistaril) 50 mg PO HSZ PRN PRN Reason: Insomnia Stop: 12/12/19 08:15 Lorazepam (Ativan) 1 mg PO Q6 PRN PRN Reason: Anxiety Stop: 12/12/19 10:06 Last Admin: 11/12/19 10:40 Dose: 1 mg Documented by: Magnesium Hydroxide (Milk Of Magnesia) 30 ml PO DAILY PRN PRN Reason: Constipation Stop: 12/12/19 08:15 Sodium Chloride ([place] Nasal) 1 - 2 sprays NA PRN PRN PRN Reason: Nasal Dryness/Congestion Stop: 12/12/19 08:15
[2019-11-13] MEDS: LORazepam 1 MG TAB PO PRN (06:27)
[2019-11-13 07:35] LABS: Glucose Fasting 111 mg/dl (70-99)
[2019-11-13 07:43] LABS: Chol HDL Ratio 3; Cholesterol 166 mg/dl (0-200); HDL Cholesterol 53 mg/dl; LDL Cholesterol Calculated 89 mg/dl; Triglycerides 122 mg/dl (0-150); VLDL Cholesterol 24 mg/dl
[2019-11-13] MEDS: ARIPiprazole 5 MG TAB PO SCH (10:01)
--- NOTE | 2019-11-13 11:10 | Psychiatric Progress Note ---
Date of Service November 13, 2019 Impression / Recommendations Impression 34 yo female with significant thought disorganization/delusional psychosis, gradual decline since 05/14. Collateral history suggests increase in talkativeness and attention seeking behaviors as well as decreased sleep with good pre-morbid functioning, no hx of negative symptoms, presentation most consistent with bipolar disorder. (1) Paranoid delusion: 11/11--The patient was admitted to the [facility] ([facility]) on q15 min checks (behavioral with suicide precautions) for safety. The patient will participate in group, recreational, and milieu therapies and will be offered additional individual and family sessions as clinically appropriate. Risks/benefits/alternatives reviewed re: rx with antipsychotic for mood stabilization and to treat thought disorganization. Discussion included but was not limited to need for monitoring for TD and metabolic abnormalities, labs ordered. Abilify chosen given suspicion of bipolar. Will start 2.5 mg Abilify today with plan to titrate. Ativan 1 mg prn as supervised with Vistaril prn to start for sleep. Will be used in place of topamax. Note that re: psychosis workup she did have a head CT during medical admission in the fall but if psychotic symptoms persist should have MRI as outpatient. 11/12--significant improvement in thought organization and sleep following one dose of Abilify, c/o dizziness this am (positional) which could be Ativan or Abilify or topamax. She declined taper of topamax again as she blames it for her increase in anxiety prior to admission. Monitor BP. Likely titrate Abilify tomorrow. no abnormal motor movements. Lipids and gluc reviewed. Risk Factors Assessment Do You Have Access To A Gun?: No Protective Factors Assessment Employed: Yes Interval History Chief Complaint "I know all that stuff I was talking about was 3 years ago but it seems like the conspiracy is ongoing". Review of Systems Sleep Information Total Hours of Sleep: 4.75 Meal Information Percent Meal Consumed - Breakfast: 80 Percent Meal Consumed - Lunch: 50 Percent Meal Consumed - Dinner: 50 Subjective Subjective Patient was seen & assessed and interval progress reviewed with nursing and social work. 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 It appears that group members did confront her therapeutically in September about her needed alot of support/talking alot but she was not blocked from group, groups were suspended when university went remote and she has had 1-2 phone check ins with electrical engineering intern Will Torres, mainly to manage anxiety around her work. SW spoke with current therapist who has scheduled for standing Wed 5 pm appointment, recent concerns about hyperverbal and perhaps histrionic, no gross thought disorganization recently. Fiance confirmed very little sleep, perhaps 30 min to 1 hour in the days leading up to hospitalization. Patient states she has some dizziness this am when putting on her jeans. Otherwise sleep improved to 4.75 hours, she thinks more. BP elevated again this am, seemingly due to anxiety and did get prn Ativan which could be the cause of the dizziness. Physical Exam Psychiatric Orientation: alert Apperance: appropriately groomed Eye Contact: good eye contact (though sometimes stares through) Motor Behavior: steady gait and station and no abnormal motor movements Speech: normal rate/rhythm/volume of speech Affect: + anxious affect Mood: + depressed mood Thought Process: + tangential thought process Thought Content: + paranoid Suicidal Thoughts: denies suicidal thoughts Homicidal Thoughts: denies homicidal thoughts Hallucinations: no auditory hallucinations and no visual hallucinations Cognition: language grossly intact; + attention not intact Estimated Intelligence: consistent with education level Insight: + poor insight Judgement: + poor judgement Vital Signs (Past 24 Hours) Last Vital Signs Temp 37.3 C 11/13/19 06:53 Pulse 110 H 11/13/19 06:54 Resp 18 11/13/19 06:53 BP 143/85 H 11/13/19 06:54 Pulse Ox 98 11/12/19 07:35 Results & Data ([facility]) Laboratory Results Laboratory Results - last 24 hr 11/13/19 06:56 Fasting Glucose 111 H Triglycerides 122 Cholesterol 166 LDL Cholesterol, Calc 89 VLDL Cholesterol, Calc 24 HDL Cholesterol 53 Cholesterol/HDL Ratio 3 Current Inpatient Medications Current Inpatient Medications: Current Inpatient Medications Acetaminophen (Tylenol) 650 mg PO Q4H PRN PRN Reason: Headache or Minor Fever Stop: 12/12/19 08:15 Al Hydrox/Mg Hydrox/Simethicone (Maalox) 30 ml PO Q4H PRN PRN Reason: GI Upset Stop: 12/12/19 08:15 Aripiprazole (Abilify) 2.5 mg PO QAM AG Stop: 12/12/19 10:09 Last Admin: 11/13/19 10:01 Dose: 2.5 mg Documented by: Benztropine Mesylate (Cogentin) 1 mg PO Q6 PRN PRN Reason: Muscle Spasm Stop: 12/12/19 10:09 Bismuth Subsalicylate (Kaopectate) 15 ml PO PRN PRN PRN Reason: Loose Stool Stop: 12/12/19 08:15 Haloperidol (Haldol) 2 mg PO Q6 PRN PRN Reason: Anxiety/Agitation Stop: 12/12/19 10:09 Last Admin: 11/12/19 15:04 Dose: 2 mg Documented by: Hydroxyzine HCl (Vistaril) 25 mg PO Q4H PRN PRN Reason: Anxiety Stop: 12/12/19 07:22 Hydroxyzine HCl (Vistaril) 50 mg PO HSZ PRN PRN Reason: Insomnia Stop: 12/12/19 08:15 Last Admin: 11/13/19 00:35 Dose: 50 mg Documented by: Lorazepam (Ativan) 1 mg PO Q6 PRN PRN Reason: Anxiety Stop: 12/12/19 10:06 Last Admin: 11/13/19 06:27 Dose: 1 mg Documented by: Magnesium Hydroxide (Milk Of Magnesia) 30 ml PO DAILY PRN PRN Reason: Constipation Stop: 12/12/19 08:15 Sodium Chloride ([place] Nasal) 1 - 2 sprays NA PRN PRN PRN Reason: Nasal Dryness/Congestion Stop: 12/12/19 08:15 Mental Health & Subst Abuse Tx Psychiatrist Name of Psychiatrist: Latanya Kimball (faxing for new referral) Therapist Name of Therapist: [facility]'s Date of Therapist Appointment: 11/16/19 Time of Therapist Appointment: 5pm Therapy Appointment Comment: and 11/23/19 @5pm Post Discharge Appointments Primary Care Physician Name Of Family Doctor: Dr. Mei, [facility] Contact Information Discharge Discharge Address: [address] [place] [address]. [address]pt [facility], [place] [address]
[2019-11-14] MEDS: LORazepam 1 MG TAB PO PRN ×2 (03:56→23:36)
[2019-11-14] MEDS: ARIPiprazole 5 MG TAB PO SCH (08:23)
[2019-11-14] MEDS ORDERED: ARIPiprazole 5 MG TAB PO ONE (10:39)
--- NOTE | 2019-11-14 10:40 | Psychiatric Progress Note ---
Date of Service November 14, 2019 Impression / Recommendations Impression 34 y/o female with history of depression and anxiety who presented with significant thought disorganization and delusions, with gradual decline since 05/14. Collateral history suggests increase in talkativeness and attention seeking behaviors as well as decreased sleep with good pre-morbid functioning, no history of negative symptoms. Presentation most consistent with bipolar disorder, and the differential also includes a primary thought disorder. (1) Paranoid delusion: 11/11--The patient was admitted to the [facility] ([facility] health unit) on q15 min checks (behavioral with suicide precautions) for safety. The patient will participate in group, recreational, and milieu therapies and will be offered additional individual and family sessions as clinically appropriate. Risks/benefits/alternatives reviewed re: rx with antipsychotic for mood stabilization and to treat thought disorganization. Discussion included but was not limited to need for monitoring for TD and metabolic abnormalities, labs ordered. Abilify chosen given suspicion of bipolar. Will start 2.5 mg Abilify today with plan to titrate. Ativan 1 mg prn as supervised with Vistaril prn to start for sleep. Will be used in place of topamax. Note that re: psychosis workup she did have a head CT during medical admission in the fall but if psychotic symptoms persist should have MRI as outpatient. 11/12--significant improvement in thought organization and sleep following one dose of Abilify, c/o dizziness this am (positional) which could be Ativan or Abilify or topamax. She declined taper of topamax again as she blames it for her increase in anxiety prior to admission. Monitor BP. Likely titrate Abilify tomorrow. no abnormal motor movements. Lipids (normal) and glucose (111) reviewed. 11/13--increase aripiprazole to 5 mg daily --Family meeting with boyfriend. --Refer to [facility] for outpatient medication management. Risk Factors Assessment Do You Have Access To A Gun?: No Protective Factors Assessment Employed: Yes Interval History Identifying Information VIVIAN BYNUM is a 34-year-old F who currently lives in [place] with her boyfriend, has a history of depression and anxiety, and was admitted on 11/12/19 07:23 on a 201 voluntary commitment for disorganized thoughts. On admission, she was started on aripiprazole. Chief Complaint " Better". Review of Systems Sleep Information Total Hours of Sleep: 4.75 Sleep Comments: pt given vistaril per rn. pt on q-15 minute checks Meal Information Percent Meal Consumed - Breakfast: 80 Percent Meal Consumed - Lunch: 75 Percent Meal Consumed - Dinner: 75 Subjective Subjective Patient was seen & assessed and interval progress reviewed with treatment team. Staff report she remains psychotic to the point that she has been unable to provide a social history, as she cannot tell what is real and what is part of her psychosis. She was perseverating on her concerns that her mother is "socially segregated," does not have friends, and is home alone all the time with her father. She was able to engage in some reality testing with staff, would state that she understood her thoughts were paranoid and not reality based, but then shortly afterwards said she still felt they were real and would resume ruminating. It occurred extended period of time to answer questions, and she appeared paranoid of staff at times, repeatedly checking name badges. She is sleeping poorly, up multiple times overnight, and received lorazepam and multiple doses of hydroxyzine. She had a phone meeting with her boyfriend and the family welfare social work professor this morning, during which she was highly anxious, emotionally labile, and often tearful. She described many situations which she believes demonstrate unhealthy codependency in her relationship with her parents and her in-laws. She believes these issues contribute to her feelings of unworthiness and being childlike. She repeatedly told her boyfriend that if he wanted to leave her, she would understand, and did not appear to be reassured by her boyfriends assertions that this was not the case. Joined at the end of the meeting and answered patient's questions about diagnosis. States she was diagnosed with depression and anxiety in the past, and that this is her second episode of psychosis, but does not think she is ever been given a diagnosis with respect to these symptoms before. Discussed initial diagnosis of psychosis NOS, and consideration for bipolar. She states that she had no treatment when previously psychotic, and mentions that her family "erased all the evidence." Patient states that she is feeling "much better," she feels calmer, less anxious and fidgety, and wants to continue to work on techniques for managing anxiety. 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 She is disappointed when informed that discharge today is not being recommended. She states that the family meeting with her boyfriend was helpful, but she wishes they could talk about these things "when I am not psychotic." She states that her boyfriend is very resistant to discussing certain subjects, specifically the patient's belief that both of their families are manipulative and controlling. She states both of their parents are "dysfunctional," and she feels her boyfriend does not believe her. She does not want her family to know she is here or for them to be involved in treatment. She states that her mood is "pretty good, above average." She thinks her sleep has improved since admission, and denies side effects to medications. Physical Exam Psychiatric Orientation: alert and cooperative Apperance: appropriately dressed, appropriately groomed and appeared stated age Eye Contact: good eye contact Motor Behavior: steady gait and station and no abnormal motor movements Very soft, almost a whisper at times Affect: + anxious affect and + irritable affect (When discussing family); + mood not congruent with affect "Much better." Thought Process: + looseness of associations Speaks in complete sentences, but at times difficult to follow her thought process Thought Content: + paranoid and + persecution Suicidal Thoughts: denies suicidal thoughts Homicidal Thoughts: denies homicidal thoughts Hallucinations: no auditory hallucinations Cognition: recent memory grossly intact and language grossly intact; + attention not intact Insight: + impaired insight Judgement: + fair judgement Vital Signs (Past 24 Hours) Last Vital Signs Temp 37.1 C 11/14/19 06:35 Pulse 119 H 11/14/19 06:36 Resp 20 11/14/19 06:35 BP 119/85 11/14/19 06:36 Pulse Ox 98 11/12/19 07:35 Results & Data ([facility]) Current Inpatient Medications Current Inpatient Medications: Current Inpatient Medications Acetaminophen (Tylenol) 650 mg PO Q4H PRN PRN Reason: Headache or Minor Fever Stop: 12/12/19 08:15 Al Hydrox/Mg Hydrox/Simethicone (Maalox) 30 ml PO Q4H PRN PRN Reason: GI Upset Stop: 12/12/19 08:15 Aripiprazole (Abilify) 2.5 mg PO QAM AG Stop: 12/12/19 10:09 Last Admin: 11/14/19 08:23 Dose: 2.5 mg Documented by: Benztropine Mesylate (Cogentin) 1 mg PO Q6 PRN PRN Reason: Muscle Spasm Stop: 12/12/19 10:09 Bismuth Subsalicylate (Kaopectate) 15 ml PO PRN PRN PRN Reason: Loose Stool Stop: 12/12/19 08:15 Haloperidol (Haldol) 2 mg PO Q6 PRN PRN Reason: Anxiety/Agitation Stop: 12/12/19 10:09 Last Admin: 11/12/19 15:04 Dose: 2 mg Documented by: Hydroxyzine HCl (Vistaril) 25 mg PO Q4H PRN PRN Reason: Anxiety Stop: 12/12/19 07:22 Hydroxyzine HCl (Vistaril) 50 mg PO HSZ PRN PRN Reason: Insomnia Stop: 12/12/19 08:15 Last Admin: 11/14/19 00:03 Dose: 50 mg Documented by: Lorazepam (Ativan) 1 mg PO Q6 PRN PRN Reason: Anxiety Stop: 12/12/19 10:06 Last Admin: 11/14/19 03:56 Dose: 1 mg Documented by: Magnesium Hydroxide (Milk Of Magnesia) 30 ml PO DAILY PRN PRN Reason: Constipation Stop: 12/12/19 08:15 Sodium Chloride ([place] Nasal) 1 - 2 sprays NA PRN PRN PRN Reason: Nasal Dryness/Congestion Stop: 12/12/19 08:15 Mental Health & Subst Abuse Tx Psychiatrist Name of Psychiatrist: Latanya Kimball (faxing for new referral) Therapist Name of Therapist: [facility] Therapist's Date of Therapist Appointment: 11/16/19 Time of Therapist Appointment: 5pm Therapy Appointment Comment: and 11/23/19 @5pm Post Discharge Appointments Primary Care Physician Name Of Family Doctor: Dr. Mei, [facility] Contact Information Discharge Discharge Address: [address] [place] [address]. [address], [place] [address]
[2019-11-15] MEDS: ARIPiprazole 5 MG TAB PO SCH (08:04)
--- NOTE | 2019-11-15 09:13 | Psychiatric Progress Note ---
Date of Service November 15, 2019 Impression / Recommendations Impression 34 y/o female with history of depression and anxiety who presented with significant thought disorganization and delusions, with gradual decline since 05/14. Collateral history suggests increase in talkativeness and attention seeking behaviors as well as decreased sleep with good pre-morbid functioning, no history of negative symptoms. Pt reports ongoing thoughts which she believes may be delusional in nature - but admitting she has had increased success with attempts to reality test. Pt encouraged to request 1:1 sessions with counselors as desired to explore these topics more. Presentation most consistent with bipolar disorder, and the differential also includes a primary thought disorder. (1) Paranoid delusion: 11/11--The patient was admitted to the [facility] ([facility] health unit) on q15 min checks (behavioral with suicide precautions) for safety. The patient will participate in group, recreational, and milieu therapies and will be offered additional individual and family sessions as clinically appropriate. Risks/benefits/alternatives reviewed re: rx with antipsychotic for mood stabilization and to treat thought disorganization. Discussion included but was not limited to need for monitoring for TD and metabolic abnormalities, labs ordered. Abilify chosen given suspicion of bipolar. Will start 2.5 mg Abilify today with plan to titrate. Ativan 1 mg prn as supervised with Vistaril prn to start for sleep. Will be used in place of topamax. Note that re: psychosis workup she did have a head CT during medical admission in the fall but if psychotic symptoms persist should have MRI as outpatient. 11/12--significant improvement in thought organization and sleep following one dose of Abilify, c/o dizziness this am (positional) which could be Ativan or Abilify or topamax. She declined taper of topamax again as she blames it for her increase in anxiety prior to admission. Monitor BP. Likely titrate Abilify tomorrow. no abnormal motor movements. Lipids (normal) and glucose (111) reviewed. 11/13--increase aripiprazole to 5 mg daily --Family meeting with boyfriend. --Refer to [facility] for outpatient medication management. 11/14 --Continue aripiprazole 5mg daily - consider further titration tomorrow --Positive family meeting with boyfriend yesterday --Continue efforts to arrange appropriate aftercare services Risk Factors Assessment Do You Have Access To A Gun?: No Protective Factors Assessment Employed: Yes Interval History Identifying Information VIVIAN BYNUM is a 34-year-old F who currently lives in [place] with her boyfriend, has a history of depression and anxiety, and was admitted on 11/12/19 07:23 on a 201 voluntary commitment for disorganized thoughts. On admission, she was started on aripiprazole. Chief Complaint "Um, I've been pretty uneven. But mostly good." Review of Systems Notes Constitutional: reports fatigue today Cardiovascular: denied Respiratory: denied Gastrointestinal: denied Neurological: denied Psychiatric: denies symptoms other than stated above Total of at least 10 systems reviewed, pertinent positives as above and in HPI. Sleep Information Total Hours of Sleep: 4.75 Sleep Comments: pt on q-15 minute checks Meal Information Percent Meal Consumed - Breakfast: 100 Percent Meal Consumed - Lunch: 100 Percent Meal Consumed - Dinner: 80 Subjective Subjective Patient was seen & assessed and interval progress reviewed with nursing and social work. Staff report the patient has still be struggling with sleep - only sleeping about 4 hours last night, and requiring a prn of lorazepam. Pt had a positive meeting with her boyfriend via phone. It was reported she has had only psychosis, but has been processing with staff. Pt was reportedly more relaxed last evening, rating her mood a 9/10 and "content." Pt was seen today to assess progress since admission. Pt states she is "uneven, but mostly good." Pt states that she remains uncertain about several events which occurred prior to her admission. She states "I think I'm still paranoid and delusional, reality testing is hard." Pt shares her belief that she is being used "as an example to intimidate my fellow classmates." Pt initially states "but I know that's not true", but then continues to discuss her awareness of conversations in which advisors have "put me on a pedestal." Pt states "I also sometimes wonder if I self-sabotage with my decisions, I just always find myself starting over and having to leave friends." Pt indicates the belief that she has "4 delusional beliefs, I wrote them down once." Pt states, "one of them is just general internet conspiracy, another is that I think two of my advisors have been sexually harassing me." Pt does indicate that she feels her ability to process these thoughts has improved during this admission. She states she had a positive meeting with her boyfriend yesterday, but did feel "he was just saying what the social research assistant and I wanted to hear." Pt states she spoke with him again separately, and felt that conversation went well also. She states "I was able to tell him something very difficult that I had been keeping in for 4 or 5 years. I was hoping this would make him feel more comfortable opening up to me as well." Pt denies suicidal ideation at this time. She denies side effects related to aripiprazole titration. She denies other needs or concerns from staff at this time. Physical Exam Psychiatric Orientation: alert, oriented x 3 and cooperative (and pleasant) Apperance: appropriately dressed (casually, wearing a sweater and jeans), appropriately groomed and appeared stated age Eye Contact: good eye contact Motor Behavior: no abnormal motor movements (observed while sitting cross-legged on bed) Speech: normal rate/rhythm/volume of speech (very soft spoken) Affect: + anxious affect and mood congruent with affect Mood: + anxious mood (admits to ongoing anxiety) "Uneven, but mostly good." Thought Process: goal directed thought process, clear/coherent thought process and + looseness of associations (seems to be improving) Thought Content: + paranoid (seems to be improving) and + delusions (per patient report - continues to question reality of thoughts); no hopelessness Suicidal Thoughts: denies suicidal thoughts and denies suicidal intent Homicidal Thoughts: denies homicidal thoughts Hallucinations: no auditory hallucinations and no visual hallucinations Cognition: attention grossly intact and language grossly intact Insight: + impaired insight Judgement: + fair judgement Vital Signs (Past 24 Hours) Last Vital Signs Temp 36.8 C 11/14/19 20:05 Pulse 102 H 11/15/19 06:46 Resp 20 11/14/19 06:35 BP 125/89 11/15/19 06:46 Pulse Ox 98 11/12/19 07:35 Results & Data ([facility]) Current Inpatient Medications Current Inpatient Medications: Current Inpatient Medications Acetaminophen (Tylenol) 650 mg PO Q4H PRN PRN Reason: Headache or Minor Fever Stop: 12/12/19 08:15 Al Hydrox/Mg Hydrox/Simethicone (Maalox) 30 ml PO Q4H PRN PRN Reason: GI Upset Stop: 12/12/19 08:15 Aripiprazole (Abilify) 5 mg PO QAM AG Stop: 12/15/19 08:59 Last Admin: 11/15/19 08:04 Dose: 5 mg Documented by: Benztropine Mesylate (Cogentin) 1 mg PO Q6 PRN PRN Reason: Muscle Spasm Stop: 12/12/19 10:09 Bismuth Subsalicylate (Kaopectate) 15 ml PO PRN PRN PRN Reason: Loose Stool Stop: 12/12/19 08:15 Haloperidol (Haldol) 2 mg PO Q6 PRN PRN Reason: Anxiety/Agitation Stop: 12/12/19 10:09 Last Admin: 11/12/19 15:04 Dose: 2 mg Documented by: Hydroxyzine HCl (Vistaril) 25 mg PO Q4H PRN PRN Reason: Anxiety Stop: 12/12/19 07:22 Hydroxyzine HCl (Vistaril) 50 mg PO HSZ PRN PRN Reason: Insomnia Stop: 12/12/19 08:15 Last Admin: 11/14/19 22:02 Dose: 50 mg Documented by: Lorazepam (Ativan) 1 mg PO Q6 PRN PRN Reason: Anxiety Stop: 12/12/19 10:06 Last Admin: 11/14/19 23:36 Dose: 1 mg Documented by: Magnesium Hydroxide (Milk Of Magnesia) 30 ml PO DAILY PRN PRN Reason: Constipation Stop: 12/12/19 08:15 Sodium Chloride ([place] Nasal) 1 - 2 sprays NA PRN PRN PRN Reason: Nasal Dryness/Congestion Stop: 12/12/19 08:15 Mental Health & Subst Abuse Tx Psychiatrist Name of Psychiatrist: Latanya Kimball (faxing for new referral) Therapist Name of Therapist: [facility] Therapist's Date of Therapist Appointment: 11/16/19 Time of Therapist Appointment: 5pm Therapy Appointment Comment: and 11/23/19 @5pm Post Discharge Appointments Primary Care Physician Name Of Family Doctor: Dr. Mei, [facility] Contact Information Discharge Discharge Address: [address], [place] [address]
[2019-11-15] MEDS: LORazepam 1 MG TAB PO PRN (22:46)
[2019-11-16] MEDS: ARIPiprazole 5 MG TAB PO SCH (09:13)
--- NOTE | 2019-11-16 09:15 | Psychiatric Progress Note ---
Date of Service November 16, 2019 Impression / Recommendations Impression 34 y/o female with history of depression and anxiety who presented with significant thought disorganization and delusions, with gradual decline since 05/14. Collateral history suggests increase in talkativeness and attention seeking behaviors as well as decreased sleep with good pre-morbid functioning, no history of negative symptoms. Pt reports ongoing thoughts which she believes may be delusional in nature - but admitting she has had increased success with attempts to reality test. Aripiprazole is tolerated, and is being titrated to a dose of 10mg. Presentation most consistent with bipolar disorder, and the differential also includes the presence of a personality disorder or possibly a primary thought disorder. (1) Paranoid delusion: 11/11--The patient was admitted to the [facility] ([facility] health unit) on q15 min checks (behavioral with suicide precautions) for safety. The patient will participate in group, recreational, and milieu therapies and will be offered additional individual and family sessions as clinically appropriate. Risks/benefits/alternatives reviewed re: rx with antipsychotic for mood stabilization and to treat thought disorganization. Discussion included but was not limited to need for monitoring for TD and metabolic abnormalities, labs ordered. Abilify chosen given suspicion of bipolar. Will start 2.5 mg Abilify today with plan to titrate. Ativan 1 mg prn as supervised with Vistaril prn to start for sleep. Will be used in place of topamax. Note that re: psychosis workup she did have a head CT during medical admission in the fall but if psychotic symptoms persist should have MRI as outpatient. 11/12--significant improvement in thought organization and sleep following one dose of Abilify, c/o dizziness this am (positional) which could be Ativan or Abilify or topamax. She declined taper of topamax again as she blames it for her increase in anxiety prior to admission. Monitor BP. Likely titrate Abilify tomorrow. no abnormal motor movements. Lipids (normal) and glucose (111) reviewed. 11/13--increase aripiprazole to 5 mg daily --Family meeting with boyfriend. --Refer to [facility] for outpatient medication management. 11/14 --Continue aripiprazole 5mg daily - consider further titration tomorrow --Positive family meeting with boyfriend yesterday --Continue efforts to arrange appropriate aftercare services 11/15 --Increasing aripiprazole to 10mg daily --Pt making phone calls to coordinate with advisor and parents - Risk Factors Assessment Do You Have Access To A Gun?: No Protective Factors Assessment Employed: Yes Interval History Identifying Information VIVIAN BYNUM is a 34-year-old F who currently lives in [place] with her boyfriend, has a history of depression and anxiety, and was admitted on 11/12/19 07:23 on a 201 voluntary commitment for disorganized thoughts. On admission, she was started on aripiprazole. Chief Complaint "I'm feeling a lot better." Review of Systems Notes Constitutional: reports headache yesterday Cardiovascular: denied Respiratory: denied Gastrointestinal: denied Neurological: denied Psychiatric: denies symptoms other than stated above Total of at least 10 systems reviewed, pertinent positives as above and in HPI. Sleep Information Total Hours of Sleep: 5.75 Sleep Comments: pt given vistaril x2 per rn. pt on q-15 minute checks. pt remained in her room other than when receiving her medications in the dayarea Meal Information Percent Meal Consumed - Breakfast: 80 Percent Meal Consumed - Lunch: 50 Percent Meal Consumed - Dinner: 90 Subjective Subjective Patient was seen & assessed and interval progress reviewed with treatment team. Staff reports the patient has been attending group programming. She reports improvement in thoughts, but reportedly had a difficult phone call with her sister last evening. Pt was seen today to assess progress since admission. Pt states that she is feeling "a lot better" today. Pt states that she is feeling "I have the friend support I need." Pt states she is planning to make some "stressful" phone calls this morning. She states she has not talked to her parents yet this hospitalization, and is hoping to call them today. She is also hoping to speak with her advisor as well. Pt indicates that she is concerned about these calls as "I know they're going to want a lot of answers, they're going to want to know my diagnosis even though they have apparently already diagnosed me." We reviewed what patient can offer as explanations for these questions. Pt was also encouraged to seek out staff support if desired to process what she might say to these individuals. Pt does indicate that she feels her thoughts are "more together now." She is agreeable with further titration of her dose of aripiprazole to 10mg daily. She was agreeable with receiving a make-up dose of 5mg this morning. Pt denies significant side effects related to the medication adjustments. We reviewed estimated length of stay. Pt feels time for stabilization is helpful, but does indicate that she is beginning to get more anxious about missing schoolwork. She denies other needs or concerns at this time. Physical Exam Psychiatric Orientation: alert, oriented x 3 and cooperative (and pleasant) Apperance: appropriately dressed, appropriately groomed and appeared stated age Eye Contact: good eye contact Motor Behavior: steady gait and station and no abnormal motor movements Speech: normal rate/rhythm/volume of speech (soft tone) Affect: + blunted affect (not appearing overtly depressed ) Mood: no depressed mood ("I'm feeling a lot better") and no anxious mood Thought Process: goal directed thought process and clear/coherent thought process Thought Content: + preoccupation (with interpersonal relationships); no hopelessness Suicidal Thoughts: denies suicidal thoughts and denies suicidal intent Homicidal Thoughts: denies homicidal thoughts Hallucinations: no auditory hallucinations and no visual hallucinations Cognition: attention grossly intact and language grossly intact Insight: + fair insight Judgement: + fair judgement Vital Signs (Past 24 Hours) Last Vital Signs Temp 36.8 C 11/16/19 07:00 Pulse 93 H 11/16/19 07:02 Resp 18 11/16/19 07:00 BP 116/80 11/16/19 07:02 Pulse Ox 98 11/12/19 07:35 Results & Data ([facility]) Current Inpatient Medications Current Inpatient Medications: Current Inpatient Medications Acetaminophen (Tylenol) 650 mg PO Q4H PRN PRN Reason: Headache or Minor Fever Stop: 12/12/19 08:15 Last Admin: 11/15/19 19:03 Dose: 650 mg Documented by: Al Hydrox/Mg Hydrox/Simethicone (Maalox) 30 ml PO Q4H PRN PRN Reason: GI Upset Stop: 12/12/19 08:15 Aripiprazole (Abilify) 5 mg PO QAM AG Stop: 12/15/19 08:59 Last Admin: 11/16/19 09:13 Dose: 5 mg Documented by: Benztropine Mesylate (Cogentin) 1 mg PO Q6 PRN PRN Reason: Muscle Spasm Stop: 12/12/19 10:09 Bismuth Subsalicylate (Kaopectate) 15 ml PO PRN PRN PRN Reason: Loose Stool Stop: 12/12/19 08:15 Haloperidol (Haldol) 2 mg PO Q6 PRN PRN Reason: Anxiety/Agitation Stop: 12/12/19 10:09 Last Admin: 11/12/19 15:04 Dose: 2 mg Documented by: Hydroxyzine HCl (Vistaril) 25 mg PO Q4H PRN PRN Reason: Anxiety Stop: 12/12/19 07:22 Hydroxyzine HCl (Vistaril) 50 mg PO HSZ PRN PRN Reason: Insomnia Stop: 12/12/19 08:15 Last Admin: 11/16/19 02:12 Dose: 50 mg Documented by: Lorazepam (Ativan) 1 mg PO Q6 PRN PRN Reason: Anxiety Stop: 12/12/19 10:06 Last Admin: 11/15/19 22:46 Dose: 1 mg Documented by: Magnesium Hydroxide (Milk Of Magnesia) 30 ml PO DAILY PRN PRN Reason: Constipation Stop: 12/12/19 08:15 Sodium Chloride ([place] Nasal) 1 - 2 sprays NA PRN PRN PRN Reason: Nasal Dryness/Congestion Stop: 12/12/19 08:15 Mental Health & Subst Abuse Tx Psychiatrist Name of Psychiatrist: Latanya Leonard Psychiatrist's Date of Appointment with Psychiatrist: 12/05/19 Time of Appointment with Psychiatrist: 1:10 p.m. Psychiatric Appointment Comment: [facility] Therapist Name of Therapist: Starr Saavedra [facility] - Debbie Addison Therapist's ext 15 Date of Therapist Appointment: 11/23/19 Time of Therapist Appointment: 5:00 pm Therapy Appointment Comment: and 11/23/19 @5pm Post Discharge Appointments Primary Care Physician Name Of Family Doctor: Dr. Mei, [facility] Primary Care Provider Appointment Comment: Please follow up as needed Other #1: Name of Aftercare Appointment: [facility] Phone Number of Aftercare Appointment: [phone] Aftercare Appointment Comment: Utilize services as needed Contact Information Discharge Discharge Address: [address], [place] [address]
[2019-11-16] MEDS ORDERED: ARIPiprazole 5 MG TAB PO ONE (09:30)
[2019-11-16] MEDS: LORazepam 1 MG TAB PO PRN (21:08)
--- NOTE | 2019-11-17 08:50 | Psychiatric Progress Note ---
Date of Service November 17, 2019 Impression / Recommendations Impression 34 y/o female with history of depression and anxiety who presented with significant thought disorganization and delusions, with gradual decline since 05/14. Collateral history suggests increase in talkativeness and attention seeking behaviors as well as decreased sleep with good pre-morbid functioning, no history of negative symptoms. Pt reports improvement in delusional/suspicious thoughts at this point. 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 Aripiprazole is tolerated, and is being titrated to a dose of 10mg - now adjusting to bedtime as patient is reporting daytime sedation and some mild GI symptoms. Presentation most consistent with bipolar disorder, and the differential also includes the presence of a personality disorder or possibly a primary thought disorder. (1) Paranoid delusion: 11/11--The patient was admitted to the [facility] ([facility] health unit) on q15 min checks (behavioral with suicide precautions) for safety. The patient will participate in group, recreational, and milieu therapies and will be offered additional individual and family sessions as clinically appro priate. Risks/benefits/alternatives reviewed re: rx with antipsychotic for mood stabilization and to treat thought disorganization. Discussion included but was not limited to need for monitoring for TD and metabolic abnormalities, labs ordered. Abilify chosen given suspicion of bipolar. Will start 2.5 mg Abilify today with plan to titrate. Ativan 1 mg prn as supervised with Vistaril prn to start for sleep. Will be used in place of topamax. Note that re: psychosis workup she did have a head CT during medical admission in the fall but if psychotic symptoms persist should have MRI as outpatient. 11/12--significant improvement in thought organization and sleep following one dose of Abilify, c/o dizziness this am (positional) which could be Ativan or Abilify or topamax. She declined taper of topamax again as she blames it for her increase in anxiety prior to admission. Monitor BP. Likely titrate Abilify tomorrow. no abnormal motor movements. Lipids (normal) and glucose (111) reviewed. 11/13--increase aripiprazole to 5 mg daily --Family meeting with boyfriend. --Refer to [facility] for outpatient medication management. 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 On admission, she was started on aripiprazole. Chief Complaint "Really good." Review of Systems Notes Constitutional: reports fatigue Cardiovascular: denied Respiratory: denied Gastrointestinal: denied Neurological: denied Psychiatric: denies symptoms other than stated above Total of at least 10 systems reviewed, pertinent positives as above and in HPI. Sleep Information Total Hours of Sleep: 5.25 Sleep Comments: pt given vistaril x2 per rn. pt on q-15 minute checks. pt remained in her room other than when receiving her medications in the dayarea Meal Information Percent Meal Consumed - Breakfast: 100 Percent Meal Consumed - Lunch: 100 Percent Meal Consumed - Dinner: 90 Subjective Subjective Patient was seen & assessed and interval progress reviewed with nursing and social work. Staff report the patient is planning to call her advisor today, and has process talking points with staff to ease anxiety related to this conversation. Pt did report nausea, loose stools, and sedation yesterday. Pt rated her mood a 9/10 and "cautiously optimistic." Pt was seen today to assess progress since admission. Pt states that she is feeling "much better" today. She states that she had a positive conversation with her parents yesterday, stating the phone call went "as good as it could have gone." Pt states that she was not able to speak to her advisor yesterday, but did process talking points with staff during the day. She anticipates making this phone call today, and admits she is a bit nervous about this. 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 Pt states that she is expecting to "be a little emotional I'm sure" after this conversation. Pt denies SI/HI and denies additional needs or concerns at this time. Physical Exam Psychiatric Orientation: alert, oriented x 3 and cooperative (and pleasant) Apperance: appropriately dressed, appropriately groomed and appeared stated age Eye Contact: good eye contact Motor Behavior: steady gait and station and no abnormal motor movements Speech: normal rate/rhythm/volume of speech (soft tone, but no longer whispering ) Affect: euthymic affect and mood congruent with affect Mood: + anxious mood (does admit to feeling "a good nervous" about call to advisor); no depressed mood ("Really good") Thought Process: goal directed thought process, clear/coherent thought process and thought association intact Thought Content: reality based without delusions; not paranoid and no hope lessness Suicidal Thoughts: denies suicidal thoughts and denies suicidal intent Homicidal Thoughts: denies homicidal thoughts Hallucinations: no auditory hallucinations and no visual hallucinations Cognition: remote memory grossly intact, attention grossly intact and language grossly intact Estimated Intelligence: consistent with education level Insight: good insight Judgement: good judgement Vital Signs (Past 24 Hours) Last Vital Signs Temp 37.2 C 11/17/19 06:54 Pulse 111 H 11/17/19 06:55 Resp 16 11/17/19 06:54 BP 113/82 11/17/19 06:55 Pulse Ox 98 11/12/19 07:35 Results & Data ([facility]) Current Inpatient Medications Current Inpatient Medications: Current Inpatient Medications Acetaminophen (Tylenol) 650 mg PO Q4H PRN PRN Reason: Headache or Minor Fever Stop: 12/12/19 08:15 Last Admin: 11/15/19 19:03 Dose: 650 mg Documented by: Al Hydrox/Mg Hydrox/Simethicone (Maalox) 30 ml PO Q4H PRN PRN Reason: GI Upset Stop: 12/12/19 08:15 Aripiprazole (Abilify) 10 mg PO HS AG Stop: 12/17/19 21:59 Benztropine Mesylate (Cogentin) 1 mg PO Q6 PRN PRN Reason: Muscle Spasm Stop: 12/12/19 10:09 Bismuth Subsalicylate (Kaopectate) 15 ml PO PRN PRN PRN Reason: Loose Stool Stop: 12/12/19 08:15 Haloperidol (Haldol) 2 mg PO Q6 PRN PRN Reason: Anxiety/Agitation Stop: 12/12/19 10:09 Last Admin: 11/12/19 15:04 Dose: 2 mg Documented by: Hydroxyzine HCl (Vistaril) 25 mg PO Q4H PRN PRN Reason: Anxiety Stop: 12/12/19 07:22 Hydroxyzine HCl (Vistaril) 50 mg PO HSZ PRN PRN Reason: Insomnia Stop: 12/12/19 08:15 Last Admin: 11/17/19 01:05 Dose: 50 mg Documented by: Lorazepam (Ativan) 1 mg PO Q6 PRN PRN Reason: Anxiety Stop: 12/12/19 10:06 Last Admin: 11/16/19 21:08 Dose: 1 mg Documented by: Magnesium Hydroxide (Milk Of Magnesia) 30 ml PO DAILY PRN PRN Reason: Constipation Stop: 12/12/19 08:15 Sodium Chloride ([place] Nasal) 1 - 2 sprays NA PRN PRN PRN Reason: Nasal Dryness/Congestion Stop: 12/12/19 08:15 Mental Health & Subst Abuse Tx Psychiatrist Name of Psychiatrist: Latanya Leonard Psychiatrist's Date of Appointment with Psychiatrist: 12/05/19 Time of Appointment with Psychiatrist: 1:10 p.m. Psychiatric Appointment Comment: [id number] Therapist Name of Therapist: Starr Saavedra [facility] - [facility]bbie Addison Therapist's ext 15 Date of Therapist Appointment: 11/23/19 Time of Therapist Appointment: 5:00 pm Therapy Appointment Comment: Telehealth Post Discharge Appointments Primary Care Physician Name Of Family Doctor: Dr. Mei, [facility] Primary Care Provider Appointment Comment: Please follow up as needed Other #1: Name of Aftercare Appointment: [facility] Phone Number of Aftercare Appointment: [phone] Aftercare Appointment Comment: Utilize services as needed Contact Information Discharge Discharge Address: [address], [place] [address]
[2019-11-17] MEDS ORDERED: ARIPiprazole 10 MG TAB PO SCH ×2 (09:00→22:00)
--- NOTE | 2019-11-18 13:11 | Discharge Summary ---
Date of Service November 18, 2019 History of Present Illness Brought to the ED by her boyfriend of many years because he had "never seen her like this". 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 She reportedly started on topamax to help with ?atypical migraine vs anxiety/panic. Hx of 1-2 dissociative like experiences at business conference, the most recent one being in [place] prior to spring. Her history is a bit disorganized but states prior to leaving for the conference she felt like "the new me" and was dressing more "vibrantly" than her usual self. She asked alot of questions at the conference and others commented that she seemed "rude". Otherwise she denies manic symptoms. She states that after that she feels like "I'm in multiple time periods at once" in that she is having some racing or disorganized thoughts about her past/present and future. She has been more focussed on her father trying to manipulate her in some way and told me a story about a phone call last week where he introduced her to a autism teacher for mentoring relationship and it didn't go well. Josie felt like the student knew more than her on topic of social management and/or was rude to her father. She feels he called back afterward to tita on her as "I don't believe a word he said". 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 She did not sleep much at all in 3-4 days leading up to this hospitalization and would cry and isolate herself. She has taken Atarax prn at times but didn't "do much lately". She spends alot of time trying to make connections between things that don't make sense. Physical Exam Psychiatric Orientation: alert, oriented x 3 and cooperative Apperance: appropriately dressed, appropriately groomed and appeared stated age Eye Contact: good eye contact Motor Behavior: steady gait and station Speech: normal rate/rhythm/volume of speech Affect: euthymic affect "Fine. I was a little nervous last night, but I am good." Thought Process: goal directed thought process and linear/logical thought process Thought Content: reality based without delusions Suicidal Thoughts: denies suicidal thoughts Homicidal Thoughts: denies homicidal thoughts Hallucinations: no auditory hallucinations Cognition: recent memory grossly intact, remote memory grossly intact, attention grossly intact and language grossly intact Estimated Intelligence: + above average estimated intelligence Insight: + fair insight Judgement: good judgement Vital Signs (Past 24 Hours) Last Vital Signs Temp 36.9 C 11/18/19 06:00 Pulse 84 11/18/19 06:44 Resp 16 11/18/19 06:00 BP 110/77 11/18/19 06:44 Pulse Ox 98 11/12/19 07:35 Principal Diagnosis Unspecified Psychosis Psychiatric Data During the course of hospitalization the patient was offered various modalities of psychiatric treatment and education. Following initial period of withdrawn behavior, the patient participated actively in individual, group, and activity therapies. There is also a telephonic family meeting with the patient, a staff therapist, and the patient's domestic partner. She was initially placed on a low-dose of aripiprazole, tolerated it well, and her presenting psychotic features appear to resolve fairly as the dose was titrated 1st-5 milligrams and then to 10 mg daily at bedtime. She also responded to as needed lorazepam, required initially, but not towards the end of her stay. The patient had been taking Topamax for migraine headaches, and was offered the opportunity to taper this medication in the hospital, but she declined and said that she would like to stop Topamax immediately because she felt that it may have been contributing to her anxiety, so this medication was discontinued in the hospital. The patient's psychotic features resolved completely. Her thought processes improved to the degree that she was demonstrating tight associations. Her affect brightened and she became more active and engaging in the milieu. Feedback provided telephonically by her boyfriend indicated that he felt that the patient's condition had returned to normal. In therapy she talked about a tendency to obsessively ruminate about various aspects of academia and believes that this tendency may have contributed to some of the delusional beliefs that she held. She was able to describe the fixed, false beliefs that she had had in the past 6 months or so, and was freely able to identify them as "paranoid" or "delusional." She remained free of all suicidal and homicidal ideations and following a review by the treatment team, followed by a discharge assessment by the psychiatrist it was determined that she had received maximum benefit from inpatient hospitalization and now could be safely and appropriately discharged to the community for ongoing treatment. The patient expressed full intent to adhere to outpatient recommendations, including medication recommendations. Day of Discharge Assessment On the day of discharge, the patient was found to be pleasant and cooperative. She was appropriately dressed and groomed, and her speech was noted to be spontaneous, fluid, and delivered at a normal rate and volume without evidence of pressured speech. Her thought processes were logical and characterized by tight associations. The patient's thought content was devoid of any psychotic features. She focused on steps he can take to reduce her stress in the community. 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 The patient also was able to talk about the fact that she tends to sometimes avoid being direct about what she needs or wants, and she notes that 1 of the things that she feels she has learned in the hospital as that she does need to be more direct when, for example, she may need a break or, alternatively, when adherence to a regular routine helps her manage her anxiety. Transition of Care Transition Of Care Record: was reviewed with the patient Advance Directives Advance Directives Information Provided: Yes Advance Directives: No Mental Health Advance Directive: No Advance Directives on File: No Living Will: No Power of Drilling Machine Runner: No Advance Directives Reason:: Declines as Mental Health Visit. Risk Factors Assessment History of psychotic illness and, possibly, early bipolar disorder with a somewhat atypical glenn. This concern is mitigated by the following: Motivated to treatment. Active academic pursuits and goals. Future oriented. Supportive romantic relationship. Male: No : Yes Do You Have Access To A Gun?: No Health Problems: No Mental Health Diagnoses: Yes Substance Use Disorders: No Previous Attempt: No Family History of Suicide: No Previous Psychiatric Hospitalization: No Hopelessness: No Smoker: No Protective Factors Assessment : No Responsible for Young Children: No Employed: Yes Stable Relationships: Yes Supportive Family: Yes Good Rapport with Provider: Yes Absence of Any Risk Factors Above: No Tobacco Cessation at Discharge Tobacco Cessation Medication Prescribed at Discharge: Not Applicable/Non-Smoker Antipsychotic Medications The patient is being discharged on aripiprazole 10 mg at bedtime. This medication is indicated because of the patient's presenting symptoms of psychosis and possible mood instability. Total Time Total Time Spent: Greater Than 30 Minutes Total Time Includes: Examination of the patient, Discharge Planning, Medication Reconciliation and Communication with other providers Discharge Data Lab Results 11/12/19 11/12/19 11/12/19 02:11 02:35 02:35 WBC 10.62 RBC 5.03 Hgb 16.2 H Hct 45.1 MCV 89.7 MCH 32.2 MCHC 35.9 RDW Std Deviation 42.8 RDW Coeff of Siddharth 13.1 Plt Count 288 MPV 10.4 Immature Gran % (Auto) 0.2 Neut % (Auto) 72.9 Lymph % (Auto) 18.8 Dickson % (Auto) 7.2 Eos % (Auto) 0.4 Baso % (Auto) 0.5 Immature Gran # (Auto) 0.02 Neut # (Auto) 7.75 H Lymph # (Auto) 2.00 Dickson # (Auto) 0.76 H Eos # (Auto) 0.04 Baso # (Auto) 0.05 Sodium 137 Potassium 3.3 L Chloride 111 H Carbon Dioxide 22 Anion Gap 4.0 BUN 8 Creatinine 0.92 Est Cr Clr Drug Dosing 86.3 Est GFR ( Amer) 95.5 Est GFR (Non-Af Amer) 82.4 BUN/Creatinine Ratio 8.5 L Glucose 119 H Fasting Glucose Calcium 9.6 Total Bilirubin 0.6 AST 16 ALT 26 Alkaline Phosphatase 145 H Total Protein 8.6 H Albumin 4.5 Globulin 4.1 H Albumin/Globulin Ratio 1.1 Triglycerides Cholesterol LDL Cholesterol, Calc VLDL Cholesterol, Calc HDL Cholesterol Cholesterol/HDL Ratio TSH 2.540 Urine Color Yellow Urine Appearance Slightly Cloudy Urine pH 5.0 Ur Specific [place] >= 1.030 Urine Protein Negative Urine Glucose (UA) Negative Urine Ketones 1+ H Urine Blood Negative Urine Nitrite Negative Urine Bilirubin Negative Urine Urobilinogen Negative Ur Leukocyte Esterase Negative Urine Test Salicylates Urine Opiates Screen Ur Methadone, Qual Acetaminophen Urine Barbiturates Ur Phencyclidine (PCP) U Amphetamin/Meth Scrn MDMA (Ecstasy) Screen U Benzodiazepines Scrn Ur Cocaine Metabolite U Marijuana (THC) Screen Ethyl Alcohol mg/dL 11/12/19 11/12/19 11/12/19 02:35 02:35 05:00 WBC RBC Hgb Hct MCV MCH MCHC RDW Std Deviation RDW Coeff of Siddharth Plt Count MPV Immature Gran % (Auto) Neut % (Auto) Lymph % (Auto) Dickson % (Auto) Eos % (Auto) Baso % (Auto) Immature Gran # (Auto) Neut # (Auto) Lymph # (Auto) Dickson # (Auto) Eos # (Auto) Baso # (Auto) Sodium Potassium Chloride Carbon Dioxide Anion Gap BUN Creatinine Est Cr Clr Drug Dosing Est GFR ( Amer) Est GFR (Non-Af Amer) BUN/Creatinine Ratio Glucose Fasting Glucose Calcium Total Bilirubin AST ALT Alkaline Phosphatase Total Protein Albumin Globulin Albumin/Globulin Ratio Triglycerides Cholesterol LDL Cholesterol, Calc VLDL Cholesterol, Calc HDL Cholesterol Cholesterol/HDL Ratio TSH Urine Color Urine Appearance Urine pH Ur Specific [place] Urine Protein Urine Glucose (UA) Urine Ketones Urine Blood Urine Nitrite Urine Bilirubin Urine Urobilinogen Ur Leukocyte Esterase Urine Test Salicylates < 1.7 L Urine Opiates Screen Neg Ur Methadone, Qual Neg Acetaminophen < 2 L Urine Barbiturates Neg Ur Phencyclidine (PCP) Neg U Amphetamin/Meth Scrn Neg MDMA (Ecstasy) Screen Neg U Benzodiazepines Scrn Neg Ur Cocaine Metabolite Neg U Marijuana (THC) Screen Neg Ethyl Alcohol mg/dL < 3.0 11/12/19 11/13/19 05:00 06:56 WBC RBC Hgb Hct MCV MCH MCHC RDW Std Deviation RDW Coeff of Siddharth Plt Count MPV Immature Gran % (Auto) Neut % (Auto) Lymph % (Auto) Dickson % (Auto) Eos % (Auto) Baso % (Auto) Immature Gran # (Auto) Neut # (Auto) Lymph # (Auto) Dickson # (Auto) Eos # (Auto) Baso # (Auto) Sodium Potassium Chloride Carbon Dioxide Anion Gap BUN Creatinine Est Cr Clr Drug Dosing Est GFR ( Amer) Est GFR (Non-Af Amer) BUN/Creatinine Ratio Glucose Fasting Glucose 111 H Calcium Total Bilirubin AST ALT Alkaline Phosphatase Total Protein Albumin Globulin Albumin/Globulin Ratio Triglycerides 122 Cholesterol 166 LDL Cholesterol, Calc 89 VLDL Cholesterol, Calc 24 HDL Cholesterol 53 Cholesterol/HDL Ratio 3 TSH Urine Color Urine Appearance Urine pH Ur Specific [place] Urine Protein Urine Glucose (UA) Urine Ketones Urine Blood Urine Nitrite Urine Bilirubin Urine Urobilinogen Ur Leukocyte Esterase Urine Test Negative Salicylates Urine Opiates Screen Ur Methadone, Qual Acetaminophen Urine Barbiturates Ur Phencyclidine (PCP) U Amphetamin/Meth Scrn MDMA (Ecstasy) Screen U Benzodiazepines Scrn Ur Cocaine Metabolite U Marijuana (THC) Screen Ethyl Alcohol mg/dL Hospital Course (1) Paranoid delusion: 11/11--The patient was [facility] health unit) on q15 min checks (behavioral with suicide precautions) for safety. The patient will participate in group, recreational, and milieu therapies and will be offered additional individual and family sessions as clinically appropriate. Risks/benefits/alternatives reviewed re: rx with antipsychotic for mood stabilization and to treat thought disorganization. Discussion included but was not limited to need for monitoring for TD and metabolic abnormalities, labs ordered. Abilify chosen given suspicion of bipolar. Will start 2.5 mg Abilify today with plan to titrate. Ativan 1 mg prn as supervised with Vistaril prn to start for sleep. Will be used in place of topamax. Note that re: psychosis workup she did have a head CT during medical admission in the fall but if psychotic symptoms persist should have MRI as outpatient. 11/12--significant improvement in thought organization and sleep following one dose of Abilify, c/o dizziness this am (positional) which could be Ativan or Abilify or topamax. She declined taper of topamax again as she blames it for her increase in anxiety prior to admission. Monitor BP. Likely titrate Abilify tomorrow. no abnormal motor movements. Lipids (normal) and glucose (111) reviewed. 11/13--increase aripiprazole to 5 mg daily --Family meeting with boyfriend. --Refer to [facility] for outpatient medication management. 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 --Patient continues to report that she feels she is tolerating aripiprazole well and notes no side effects. Material risks and anticipated benefits of aripiprazole reviewed again with the patient today. --Patient's thought content is entirely reality based. There is no evidence of any suicidal or homicidal thoughts, and the patient's speech and behaviors are well organized. --Discharge is planned today. The patient will go home to live with her boyfriend and although her advisor is recommended that she take "some time off" from academic pursuits, the patient says that she would like to discuss this further with her advisor because she feels that working in a structured setting with a fixed schedule is helpful to her in terms of managing her anxiety. Her goal for the next few weeks will be to engage in writing, something that she says has always been somewhat relaxing for her. Mental Health & Subst Abuse [facility] Psychiatrist Name of Psychiatrist: Latanya Kimball - [facility] Date of Appointment with Psychiatrist: 12/05/19 Time of Appointment with Psychiatrist: 1:10 p.m. Psychiatric Appointment Comment: [id number] [facility] Therapist Name of Therapist: [facility] Debbie Addison The[facility]ist's ext 15 Date of Therapist Appointment: 11/23/19 Time of Therapist Appointment: 5:00 pm Therapy Appointment Comment: Telehealth Post Discharge Appointments Primary Care Physician Name Of Family Doctor: Dr. Mei, [facility] Primary Care Provider Appointment Comment: Please follow up as needed Smoking Cessation Counseling Tobacco Cessation Medication Prescribed at Discharge: Not Applicable/Non-Smoker Contact Information Discharge Discharge Address: [facility] [address]. [address] [place] [address] Discharge Plan Discharge Items Patient Disposition: Home - Self-Care Reason For Visit: PSYCHOSIS Discharge Diagnosis: Unspecified Psychosis Activity: Resume your previous activity Non-emergency contact: Primary Care Provider, Psychiatrist and Therapist Call non-emergency contact if: you have any medication questions and your symptoms worsen Follow-up/Referrals: [facility] [Primary Care Provider] - Diet: Regular Addtl Attending Provider Instructions: SPECIAL CARE INSTRUCTIONS: 1. Follow through with your scheduled aftercare appointments. If unable to keep an appointment, please call to reschedule. 2. Take your medication only as prescribed. Medication should not be changed or stopped without the approval of your doctor. In the event of worsening symptoms or concerns about side effects, contact your doctor immediately. 3. Utilize new healthy coping skills, anger management skills, and stress management skills learned during your hospitalization. Journal feelings and process them with a support person. Identify stressors or situations that may result in relapse, deterioration or inappropriate behaviors and develop a plan to deal with those issues. 4. If your coping skills are ineffective and you are in crisis, contact your outpatient providers for direction. If unable to reach your providers, please call the CAN HELP LINE AT or go to the closest Emergency Room. 5. Avoid alcohol and un-prescribed drugs. 6. You have been provided with the Mental Health Advance Directives Pamphlet for your review. AFTERCARE APPOINTMENTS: * Please call your insurance company prior to your scheduled appointment to confirm your aftercare providers are covered. Take your insurance information to your appointments. WHO TO CALL AND WHEN: Medical Emergencies: For questions or emergencies related to your hospital stay, please contact the Inpatient Behavioral Health Unit at [phone]. A internetworking technician is on-call 16/02 for the Behavioral Health Unit for emergencies At any time you feel your situation is an emergency, you may also call 911 immediately. Your Doctors Instructions noted above were prepared by provider River Melendez MD. Pending Studies at Discharge: No Stand-Alone Forms: My [facility] [employer], Smoking Cessation, Suicide Prevention Resources Medications and DC Order Prescriptions: New hydroxyzine HCl 25 mg Tablet 50 mg PO HSZ PRN (Reason: Sleep) Qty: 60 RF: 0 aripiprazole [Abilify] 10 mg Tablet 10 mg PO HS Qty: 30 RF: 0 Discontinued hydroxyzine HCl 25 mg tablet 25 mg PO Q4 PRN (Reason: Anxiety) RF: 0 topiramate [Topamax] 100 mg Tablet 100 mg PO DAILY RF: 0 Discharge Orders: Discharge Order (Routine); Ordered 11/18/19 Ordered By: River Melendez Admission Data Admit Date/Time: 11/12/19 07:23 Attending Provider: Caryl Kellogg Admit Provider: Nehal Trimble Primary Care Provider: [facility] Other Interventions: PSY Interdisciplinary Discharge Planning Last Done: 11/17/19 14:27 C[place] [address] D/C day mgmt > 30 min Patient Type Established History Expanded Problem Focused Exam Expanded Problem Focused Medical Decision Making Moderate Complexity Diagnoses Paranoid delusion F22 Time Spent (min) 60
== END 2019-11-18 13:30 | disposition home or self-care (01) | DRG 885 ==
LOC: ED 01:35 → 3S 07:23 → SUATTDRO 07:23 → 3S 07:32